=== PATIENT | female | born 1955 | race Caucasian/White ===

== ENCOUNTER 2021-10-27 09:19 | Outpatient (CLI) | payer OTHER, SELFPAY ==
[2021-10-27 09:46] LABS: Absolute Lymphocyte Count 1.75 X10^3/uL (0.83-4.51); Absolute Neutrophil Count 3.2 X10^3/uL (2.0-7.7); Basophil# 0.04 X10^3/uL; Basophil% 0.7 % (0-1); Eosinophil# 0.29 X10^3/uL; Eosinophils% 5.1 % (0-5); Hematocrit 43.5 % (37-47); Hemoglobin 14.4 g/dL (12.0-15.0); Lymphocyte # 1.75 X10^3/ul (0.83-4.51); Lymphocyte % 30.6 % (19-41); Mean Corp Hgb Conc 33.1 g/dL (32-36); Mean Corpuscular Hgb 29.7 pg (27.0-32.0); Mean Corpuscular Volume 89.7 fL (81-99); Monocyte# 0.48 X10^3/uL; Monocyte% 8.4 % (0-10); NRBC Flagged by Analyzer 0 % (0-5); Neutrophil # 3.15 X10^3/uL (2.7-7.7); Platelet Count 268 K/mm3 (150-450); RBC Distribution Width CV 12.6 % (11.6-14.6); RBC Distribution Width SD 41.8 fl (35.1-43.9); Red Blood Count 4.85 M/mm3 (4.2-5.4); White Blood Count 5.7 K/mm3 (4.4-11.0)
[2021-10-27 09:53] LABS: Prothrombin Time (Protime)PT. 12.3 SECONDS (11.7-14.9)
[2021-10-27 10:06] LABS: Hemoglobin A1c 5.6 % (3.8-5.6)
[2021-10-27 10:31] LABS: ALB/GLOB Ratio 0.9 RATIO (0.9-2.4); AST(SGOT) 93 U/L (15-37); Alanine Aminotransfer ALT/SGPT 389 U/L (13-56); Albumin, Serum 3.5 g/dL (3.2-5.0); Alkaline Phosphatase 119 U/L (45-117); Anion Gap 7 (5-15); BUN 17 mg/dL (7-18); BUN/Creat Ratio 20.5 RATIO (10-20); CRP 7.93 mg/L (0.0-3.0); Chloride 106 mmol/L (98-107); Creatinine, Serum 0.83 mg/dL (0.55-1.02); EST Glomerular Filtration Rate 73 mL/min (>60); Est Glom Filt Rate - Afr Amer 89 mL/min (>60); Glucose 98 mg/dL (74-106); LDH 209 U/L (84-246); Potassium 3.9 mmol/L (3.5-5.1); Protein, Total 7.5 g/dL (6.4-8.2); Sodium Level 139 mmol/L (136-145)
[2021-10-28 09:08] LABS: HEPATITIS B SURFACE AG Negative (Negative); Hepatitis A IgM Antibody Negative (Negative); Hepatitis B Core AB IgM Negative (Negative)
[2021-10-28 14:09] LABS: Anti-Centromere B Ab <0.2 AI (0.0-0.9); Anti-Chromatin <0.2 AI (0.0-0.9); Anti-Jo <0.2 AI (0.0-0.9); Anti-Scleroderma-70 AB <0.2 AI (0.0-0.9); RNP Ab 0.7 AI (0.0-0.9); SJOGREN'S Anti-SS-A test < 0.2 AI (0.0-0.9); SJOGREN'S Anti-SS-B test < 0.2 AI (0.0-0.9); Smith Ab <0.2 AI (0.0-0.9)
[2021-10-28 17:51] LABS: Hep C Antibodies <0.1 s/co ratio (0.0-0.9)
[2021-10-28 19:03] LABS: Anti-Mitochondrial AB <20.0 Units (0.0-20.0)
[2021-10-28 19:04] LABS: Anti-dsDNA Ab <1 IU/mL (0-9)
[2021-11-01 21:07] LABS: Cytoplasmic Ab (C-ANCA) <1:20 titer (Neg:<1:20); Endomysial Antibody IgA Negative (Negative); Immunoglobulin A 248 mg/dL (87-352); Immunoglobulin E 59 IU/mL (6-495); Immunoglobulin G 1044 mg/dL (586-1602)
[2021-11-01 21:24] LABS: Anti-Smooth Muscle ABS 25 Units (0-19); Copper, Serum or Plasma 129 ug/dL (80-158); Immunoglobulin M 179 mg/dL (26-217); Perinuclear Ab (P-ANCA) <1:20 titer (Neg:<1:20); t-Transglutaminase IgA <2 U/mL (0-3)
== END 2021-10-27 23:59 | disposition short-term general hospital (02) ==
PROVIDERS: Nurse Practitioner Adult Health; PCP Family Medicine; Referring Provider Internal Medicine Gastroenterology; Visit Provider Internal Medicine Gastroenterology
DX: K76.0 Fatty (change of) liver, not elsewhere classified (principal); R74.8 Abnormal levels of other serum enzymes
CPT/HCPCS: 36415; 80053; 80074; 82525; 82784; 82785; 83036; 83516; 83615; 85025; 85610; 85730; 86140; 86225; 86235; 86255; 86256

== ENCOUNTER 2021-11-07 06:56 | Outpatient (CLI) | payer SELFPAY, OTHER ==
--- NOTE | 2021-11-07 07:14 | US_ITS ---
STUDY: ABDOMINAL ULTRASOUND - RIGHT UPPER QUADRANT REASON FOR VISIT: Female, 66 years old FATTY LIVER . Patient status post cholecystectomy. TECHNIQUE: Ultrasound evaluation of the right upper quadrant was performed with real-time and static connell-scale imaging. TECHNICAL QUALITY: Adequate. COMPARISON: None. FINDINGS: Liver: The liver measures 14.8 cm. There is increased echogenicity consistent with fatty infiltration. The bile ducts are within normal limits. There is hepatic color flow. The direction of portal flow is hepatopetal. There is no demonstrated mass lesion. Gallbladder: The patient is status post cholecystectomy. Common Bile Duct (C.B.D.): The common bile duct measures 8.9 mm. Pancreas: Normal size of the head, body and tail of the pancreas. There is increased echogenicity of the pancreas. There is no demonstrated pancreatic mass or cyst. Right Kidney: Normal size of the right kidney. The right kidney measures 12.2 cm x 5.1 cm x 3.9 cm. Normal renal cortex. The right cortex measures 1.2 cm. There is a 5.8 cm x 6.1 cm x 5 cm right renal cyst. There is no right hydronephrosis. IMPRESSION: Fatty infiltration of the liver. Right renal cyst. Electronically Signed: William Amaya MD at 8:44 EST , STUDY: ABDOMINAL ULTRASOUND - ELASTOGRAPHY REASON FOR VISIT: Female, 66 years old. Fatty infiltration of the liver. TECHNIQUE: Liver stiffness measurements were obtained on a Ebyline 85 ultrasound machine using a CA 1-7 probe following the SRU guidelines. 3 measurements were obtained using a 2-D-SWE method. The IQR/M was 20% suggesting a quality data set. TECHNICAL QUALITY: Adequate. COMPARISON: Comparison is made with prior ultrasound of the right upper quadrant done earlier. FINDINGS: Liver: There is evidence of fatty infiltration of the liver. Median liver stiffness measured 6.3 kPa. US/Abdomen Limited IMPRESSION: Liver stiffness measures 6.3 kPa compatible with F2 Metavir score. Electronically Signed: William Amaya MD at 8:45 EST ,
== END 2021-11-07 23:59 | disposition home or self-care (01) ==
PROVIDERS: PCP Family Medicine; Referring Provider Nurse Practitioner Adult Health; Visit Provider Nurse Practitioner Adult Health
DX: K76.0 Fatty (change of) liver, not elsewhere classified (principal); N28.1 Cyst of kidney, acquired
CPT/HCPCS: 76705; 76981

== ENCOUNTER 2021-11-19 00:50 | Emergency (ER) | payer OTHER, SELFPAY ==
[2021-11-19 00:51] VITALS: BP 167/125; BP 167/84; PULSE 70; PULSE 72; RESP 13; RESP 18; TEMP 36.6; O2SAT 98; O2SAT 99; BMI 32.6
[2021-11-19 01:11] VITALS: BP 156/101; PULSE 69; RESP 15; O2SAT 99
[2021-11-19] MEDS: Ondansetron 4 MG/2 ML Vial IV (01:24)
[2021-11-19] MEDS: Mag Hydrox/Al Hydrox/Simeth 30 ML UDC PO (01:24)
--- NOTE | 2021-11-19 01:25 | ED.VIS.GI ---
HPI HPI - GI History of Present Illness Chief Complaint: Abd Pain Narrative Narrative: Patient presents with her because of epigastric pain that she has had since 6 PM. She is nauseated. She has been seen at other ERs and told that she had gastritis. She takes a proton pump inhibitor. She states that she also sees gastroenterology, Dr. Monroe. She had a biopsy performed and had an allergy to her tape. She started prednisone. She denies any exacerbating or alleviating factors. Past surgical history does include cholecystectomy and hysterectomy. She has not vomited. PFSH PFS Medical History Abdominal pain Breast cyst Home Medications Aim barley life extra PO 10/27/21 [History Last Taken Unknown] Aim herbal fiberblend PO 10/27/21 [History Last Taken Unknown] Charcoal PO 10/27/21 [History Last Taken Unknown] Hep-3 liver purifier PO 10/27/21 [History Last Taken Unknown] Super papaya enzyme plus PO 10/27/21 [History Last Taken Unknown] esomeprazole magnesium 40 mg capsule,delayed release 40 mg PO DAILY 10/27/21 [History Last Taken Unknown] prednisone 11/19/21 [History Last Taken Unknown] Allergy/AdvReac Type Severity Reaction Status Date / Time acetaminophen [From Vicodin] AdvReac skip heart Verified 11/19/21 01:02 beats hydrocodone [From Vicodin] AdvReac skip heart Verified 11/19/21 01:02 beats Family History Father Cancer Brother Heart disease Surgical History H/O bladder repair surgery H/O: hysterectomy Hx of cholecystectomy Knee joint replacement status Social History Smoking Status: Never smoker alcohol intake: never substance use type: does not use what type of physical activity do you participate in: none ROS ROS ED ROS Narrative Constitutional: No fever, no chills. HEENT: No sore throat. No neck pain. No loss of vision. No rhinorrhea. Cardiovascular: No chest pain. No palpitations. No pedal edema. Respiratory: No cough, no shortness of breath. Abdominal: Epigastric abdominal pain. Positive nausea. No vomiting. Genitourinary: No dysuria. No hematuria. Musculoskeletal: No myalgias. No arthralgias. Neurologic: No headaches. No dizziness. No lightheadedness. Skin: No rash. No change in color. Psychiatric: No depression. No anxiety. EXAM Physical Exam Narrative Exam Narrative: Afebrile. Vital signs noted. HEENT: Normocephalic. Atraumatic. PERRL, EOMI. Neck soft and supple. No point tenderness or step off. Cardiovascular: Regular rate and rhythm. No murmurs, rubs, or gallops appreciated. Respiratory: No tachypnea. Lungs clear to auscultation bilaterally. Gastrointestinal: Abdomen soft, mild tenderness in epigastrium, with normoactive bowel sounds. No rebound or guarding. Neurological: Awake. Alert. Nonfocal, nonlateralizing. Skin: No rash. Normal color. No pallor. Musculoskeletal: No pedal edema. Full range of motion extremities. Const Vital Signs: 11/19/21 00:51 11/19/21 01:11 11/19/21 03:14 Temperature 98 F Temperature Source Oral Pulse Rate 72 69 72 Respiratory Rate 13 15 19 H Blood Pressure 167/84 H 156/101 H 181/115 H Blood Pressure Mean 111 119 137 Pulse Ox 99 99 99 Oxygen Delivery Method Room Air Room Air Room Air 11/19/21 04:22 Temperature Temperature Source Pulse Rate 61 Respiratory Rate 16 Blood Pressure 171/87 H Blood Pressure Mean 115 Pulse Ox 96 Oxygen Delivery Method Room Air MDM MDM MDM Narrative Medical decision making narrative: Her did show me the medication that she is taking for her allergic reaction to the adhesive, which is prednisone. I do think that this may be causing her gastritis again. She is afebrile here. I will obtain laboratory work and check her pancreatic enzymes also. She was given Zofran along with a GI cocktail. CBC shows normal white count at 10.5, hemoglobin 15.1. Normal platelet count of 318. Sodium normal at 141, mild hypokalemia at 3.3. She has normal creatinine. She has elevated AST at 503 and ALT at 453 with an alk phos of 137. She does have chronic elevation and is seeing Dr. Friend for this, her last visit on 10/27/2021, few weeks ago still showed elevated liver enzymes. Upon repeat examination, she states that she has gas pain. She states the first time that she went to an outside facility they gave her something through my IV that helped. Additionally when she was the second time, her states that the pain suddenly vanished. If she is describing gas pain, I will treat her with Bentyl 20 mg intramuscularly. Her EKG demonstrates normal sinus rhythm at 61 bpm without ectopy or acute ST changes. High-sensitivity troponin is negative. This is a 6-hour troponin. CT of the abdomen and pelvis shows dilated common bile duct most likely from previous cholecystectomy. There is diverticulosis but no diverticulitis. No evidence of pancreatitis. Patient states that nothing has helped. She still describes it as gas pain. She has an allergy to hydrocodone with skipped heartbeats. I will try Reglan first to help with any gastric emptying problems that she may be experiencing. Repeat evaluation after Reglan showed no improvement. I had a lengthy discussion with the patient and her . She will stop taking the prednisone. She will be given 1 dose of morphine which she has previously tolerated. She does have an elevated blood pressure reading. She will have this addressed by her primary care physician. I did order hydralazine, but after morphine, it seems to be lowering on its own. At this point in time, I am unsure as to the cause of her epigastric pain. She may have a gastritis versus peptic ulcer disease. She will follow up with Dr. Monroe with gastroenterology. I do not feel that she meets any admission criteria. Her comprehensive work-up has yielded negative results except for her known elevated liver enzymes for which she is following up. I feel she can be discharged safely home. Return instructions to the emergency department were reviewed. Disposition is discharged home in stable condition. Lab Data Labs: Laboratory Results - last 24 hr 11/19/21 11/19/21 11/19/21 01:00 01:00 01:00 WBC 10.5 RBC 5.00 Hgb 15.1 H Hct 45.2 MCV 90.4 MCH 30.2 MCHC 33.4 RDW Std Deviation 42.1 RDW Coeff of Reagan 12.7 Plt Count 318 MPV 9.3 Immature Gran % (Auto) 0.500 Neut % (Auto) 58.8 Lymph % (Auto) 30.4 [place] % (Auto) 9.0 Eos % (Auto) 0.9 Baso % (Auto) 0.4 Absolute Neuts (auto) 6.2 Absolute Lymphs (auto) 3.19 Nucleated RBC % 0 Sodium 141 Potassium 3.3 L Chloride 105 Carbon Dioxide 29.0 Anion Gap 7 BUN 22 H Creatinine 0.97 Estim Creat Clear Calc 53.41 Est GFR (MDRD) Af Amer 74 Est GFR (MDRD) Non-Af 61 BUN/Creatinine Ratio 22.7 H Glucose 132 H Calcium 9.1 Total Bilirubin 0.90 AST 503 H ALT 453 H Alkaline Phosphatase 137 H Troponin I High Sens 5 Total Protein 7.6 Albumin 3.6 Globulin 4.0 Albumin/Globulin Ratio 0.9 Lipase 79 Radiography Diagnostic Testing: Clinical Impression(s) from Imaging Studies Abdomen/Pelvis CT 11/19/21 01:52 IMPRESSION: There is dilation of the common bile duct and intrahepatic biliary ducts most likely to to prior cholecystectomy. Right renal cyst measures 6 cm. Normal left kidney. There are multiple colonic diverticula consistent with diverticulosis. Electronically Signed: Homer Zaidi MD at 2:59 EST Reading Location ID and State: [facility] / [place] Tel , Service support , Discharge Plan Triage Chief Complaint: Abd Pain ED Provider: Eric Dias Dx/Rx/DC Orders Clinical Impression: Abdominal pain, epigastric, Liver enzyme elevation, Blood pressure elevated without history of HTN Instructions: ED Hypertension, To Be Confirmed, ED PEPTIC ULCER vs GASTRITIS, ED Epigastric Pain Uncertain Cause Prescriptions: No Action esomeprazole magnesium 40 mg capsule,delayed release(DR/EC) 40 mg PO DAILY RF: 0 Aim barley life extra PO RF: 0 Aim herbal fiberblend PO RF: 0 Super papaya enzyme plus PO RF: 0 Hep-3 liver purifier PO RF: 0 Charcoal PO RF: 0 prednisone 20 mg tablet RF: 0 Primary Care Provider: Court Billingsley Referrals: Court Billingsley MD [Primary Care Provider] - Boom Monroe DO [STAFF PHYSICIAN] - 3-5 Days Disposition Disposition: Home, Self Care
[2021-11-19 01:26] LABS: Absolute Lymphocyte Count 3.19 X10^3/uL (0.83-4.51); Absolute Neutrophil Count 6.2 X10^3/uL (2.0-7.7); Basophil# 0.04 X10^3/uL; Basophil% 0.4 % (0-1); Eosinophil# 0.09 X10^3/uL; Eosinophils% 0.9 % (0-5); Hematocrit 45.2 % (37-47); Hemoglobin 15.1 g/dL (12.0-15.0); Lymphocyte # 3.19 X10^3/ul (0.83-4.51); Lymphocyte % 30.4 % (19-41); Mean Corp Hgb Conc 33.4 g/dL (32-36); Mean Corpuscular Hgb 30.2 pg (27.0-32.0); Mean Corpuscular Volume 90.4 fL (81-99); Mean Platelet Vol. 9.3 fl (6.2-12.0); Monocyte# 0.95 X10^3/uL; NRBC Flagged by Analyzer 0 % (0-5); Neutrophil # 6.18 X10^3/uL (2.7-7.7); Neutrophil % 58.8 % (47-70); Platelet Count 318 K/mm3 (150-450); RBC Distribution Width CV 12.7 % (11.6-14.6); RBC Distribution Width SD 42.1 fl (35.1-43.9); White Blood Count 10.5 K/mm3 (4.4-11.0)
[2021-11-19 01:39] LABS: ALB/GLOB Ratio 0.9 RATIO (0.9-2.4); AST(SGOT) 503 U/L (15-37); Alanine Aminotransfer ALT/SGPT 453 U/L (13-56); Albumin, Serum 3.6 g/dL (3.2-5.0); Alkaline Phosphatase 137 U/L (45-117); Anion Gap 7 (5-15); BUN 22 mg/dL (7-18); BUN/Creat Ratio 22.7 RATIO (10-20); Calcium,Total 9.1 mg/dL (8.5-10.1); Chloride 105 mmol/L (98-107); Creatinine, Serum 0.97 mg/dL (0.55-1.02); EST Glomerular Filtration Rate 61 mL/min (>60); Est Glom Filt Rate - Afr Amer 74 mL/min (>60); Estimated Creatinine Clearance 53.41 ml/min; Glucose 132 mg/dL (74-106); Lipase 79 U/L (73-393); Potassium 3.3 mmol/L (3.5-5.1); Protein, Total 7.6 g/dL (6.4-8.2); Sodium Level 141 mmol/L (136-145)
--- NOTE | 2021-11-19 01:52 | CT_ITS ---
STUDY: CT ABDOMEN AND PELVIS WITH CONTRAST REASON FOR EXAM: Female, 66 years old. Pain RADIATION DOSAGE (If Supplied By Facility): CTDIvol = ( 15.52 ) mGy, DLP = ( 819.00 ) mGycm TECHNIQUE: Transaxial images were obtained from the dome of the diaphragm to the symphysis pubis without oral contrast. IV 100mL Isovue-370 was administered. Sagittal and coronal images were reconstructed. Individualized dose optimization techniques were used for this CT. COMPARISON: None. FINDINGS: The visualized lung bases are unremarkable. The visualized portions of the heart are within normal limits. Normal liver. There are surgical clips in the gallbladder fossa consistent with a prior cholecystectomy. There is dilation of the common bile duct and intrahepatic biliary ducts most likely to to prior cholecystectomy. Normal spleen. Normal pancreas. Normal bilateral adrenal glands. Right renal cyst measures 6 cm. Normal left kidney. Normal visualized stomach. Normal small intestine. There are multiple colonic diverticula consistent with diverticulosis. The appendix is visualized and appears normal. Normal abdominal aorta. Normal inferior vena cava. Normal retroperitoneum. Normal urinary bladder. Normal abdominal wall. Normal osseous structures. CT/Abdomen/Pelvis W IV Cont ONLY IMPRESSION: There is dilation of the common bile duct and intrahepatic biliary ducts most likely to to prior cholecystectomy. Right renal cyst measures 6 cm. Normal left kidney. There are multiple colonic diverticula consistent with diverticulosis. Electronically Signed: Homer Zaidi MD at 2:59 EST ,
--- NOTE | 2021-11-19 01:55 | EKG12_ITS ---
Test Reason : DYSRHYTHMIA Blood Pressure : / mmHG Vent. Rate : 061 BPM Atrial Rate : 061 BPM P-R Int : 162 ms QRS Dur : 072 ms QT Int : 432 ms P-R-T Axes : 056 019 024 degrees QTc Int : 434 ms Normal sinus rhythm Normal ECG Confirmed by MARCO MACDONALD, BELEN ([id number]), editor managing newspaper YISSEL LO ([id number]) on 11/23/2021 11:48:33 A M Referred By: GENE Confirmed By:NUSRAT LARA MD
[2021-11-19] MEDS: Dicyclomine 20 MG/2 ML Vial IM (01:56)
[2021-11-19 02:22] LABS: Troponin-I HS 5 pg/mL (3.0-54.0)
[2021-11-19] MEDS: Metoclopramide 10 MG/2 ML Vial 5 MG IV (03:13)
[2021-11-19 03:14] VITALS: BP 181/115; PULSE 72; RESP 19; O2SAT 99
[2021-11-19] MEDS: Morphine 4 MG/ML Syringe IV (04:10)
[2021-11-19 04:22] VITALS: BP 171/87; PULSE 61; RESP 16; O2SAT 96
[2021-11-19 04:56] VITALS: BP 171/83; PULSE 67; RESP 16; O2SAT 96
== END 2021-11-19 05:04 | disposition home or self-care (01) ==
PROVIDERS: Emergency Provider Emergency Medicine; PCP Family Medicine; Visit Provider Emergency Medicine
DX: R10.13 Epigastric pain (principal); R94.5 Abnormal results of liver function studies; R03.0 Elevated blood-pressure reading, without diagnosis of hypertension; Z90.49 Acquired absence of other specified parts of digestive tract; Z90.710 Acquired absence of both cervix and uterus
CPT/HCPCS: 74177; 80053; 83690; 84484; 85025; 93005; 96372; 96374; 96375; 99282; Q9967; A4216; J2405

== ENCOUNTER 2021-12-16 10:11 | Outpatient (CLI) | payer OTHER, SELFPAY ==
[2021-12-16 10:27] LABS: Erythrocyte Sedimentation Rate 29 mm/hr (0-30)
[2021-12-16 10:32] LABS: Prothrombin Time (Protime)PT. 12.8 SECONDS (11.7-14.9)
[2021-12-16 11:00] LABS: ALB/GLOB Ratio 0.9 RATIO (0.9-2.4); AST(SGOT) 17 U/L (15-37); Alanine Aminotransfer ALT/SGPT 29 U/L (13-56); Albumin, Serum 3.6 g/dL (3.2-5.0); Alkaline Phosphatase 85 U/L (45-117); Anion Gap 2 (5-15); BUN 15 mg/dL (7-18); BUN/Creat Ratio 18.3 RATIO (10-20); CRP 7.32 mg/L (0.0-3.0); Calcium,Total 9.5 mg/dL (8.5-10.1); Chloride 107 mmol/L (98-107); Creatinine, Serum 0.82 mg/dL (0.55-1.02); EST Glomerular Filtration Rate 74 mL/min (>60); Est Glom Filt Rate - Afr Amer 90 mL/min (>60); Globulin 3.8 g/dL (2.2-4.2); Glucose 97 mg/dL (74-106); LDH 214 U/L (84-246); Potassium 4.3 mmol/L (3.5-5.1); Protein, Total 7.4 g/dL (6.4-8.2); Sodium Level 138 mmol/L (136-145)
== END 2021-12-16 23:59 | disposition home or self-care (01) ==
LOC: LAB 10:12
PROVIDERS: PCP Family Medicine; Visit Provider Internal Medicine Gastroenterology
DX: K76.0 Fatty (change of) liver, not elsewhere classified (principal); R74.8 Abnormal levels of other serum enzymes; R10.9 Unspecified abdominal pain
CPT/HCPCS: 36415; 80053; 83615; 85610; 85652; 86140

== ENCOUNTER → 2022-10-06 | Outpatient (CLI) | payer SELFPAY, OTHER ==
--- NOTE | 2022-10-06 09:26 | US_ITS ---
STUDY: ABDOMINAL ULTRASOUND - ELASTOGRAPHY REASON FOR VISIT: Female, 66 years old. NAFLD TECHNIQUE: Liver stiffness measurements were obtained on a Firmafon RS 85 ultrasound machine using a CA 1-7 probe following the SRU guidelines. 3 measurements were obtained using a 2-D-SWE method. The IQR/M was 19% suggesting a quality data set. TECHNICAL QUALITY: Adequate. COMPARISON: Comparison is made with prior study done earlier today and 11/07/2021. FINDINGS: Liver: Fatty infiltration of the liver. Median liver stiffness measured 9 kPa. US/Elastography Parenchyma/Organ IMPRESSION: Liver stiffness measures 9 kPa compatible with F2-F3 (Mild to moderate liver fibrosis) Metavir score. Electronically Signed: William Amaya MD at 12:54 EST ,
--- NOTE | 2022-10-06 09:26 | US_ITS ---
STUDY: ABDOMINAL ULTRASOUND - RIGHT UPPER QUADRANT REASON FOR VISIT: Female, 66 years old NAFLD TECHNIQUE: Ultrasound evaluation of the right upper quadrant was performed with real-time and static connell-scale imaging. TECHNICAL QUALITY: Adequate. COMPARISON: Comparison is made with prior study dated 11/07/2021. FINDINGS: Liver: The liver measures 13.4 cm. There is increased echogenicity consistent with fatty infiltration. The bile ducts are within normal limits. There is hepatic color flow. The direction of portal flow is hepatopetal. There is no demonstrated mass lesion. Gallbladder: The patient is status post cholecystectomy. Common Bile Duct (C.B.D.): The common bile duct measures 5 mm. Pancreas: Normal size of the head, body and tail of the pancreas. There is normal echogenicity of the pancreas. There is no demonstrated pancreatic mass or cyst. Right Kidney: Normal size of the right kidney. The right kidney measures 11.6 cm x 5.9 cm x 4.6 cm. Normal renal cortex. The right cortex measures 1.5 cm. There is a 5.7 cm x 5.7 cm x 5.1 cm right renal cyst. There is no right hydronephrosis. US/Abdomen Limited IMPRESSION: Status post cholecystectomy. Stable right renal cyst. Fatty infiltration of the liver. Electronically Signed: William Amaya MD at 12:52 EST ,
== END | disposition home or self-care (01) ==
PROVIDERS: PCP Family Medicine; Visit Provider Nurse Practitioner Adult Health
DX: K76.0 Fatty (change of) liver, not elsewhere classified (principal)
CPT/HCPCS: 76705; 76981

== ENCOUNTER → 2022-12-11 | Outpatient (CLI) | payer OTHER, SELFPAY ==
[2022-12-11 11:07] LABS: Ammonia < 10.0 umol/L (11-32)
[2022-12-11 11:41] LABS: Erythrocyte Sedimentation Rate 31 mm/hr (0-30); Prothrombin Time (Protime)PT. 12.7 SECONDS (11.7-14.9)
[2022-12-11 12:03] LABS: ALB/GLOB Ratio 0.9 RATIO (0.9-2.4); AST(SGOT) 14 U/L (15-37); Alanine Aminotransfer ALT/SGPT 26 U/L (13-56); Albumin, Serum 3.6 g/dL (3.2-5.0); Alkaline Phosphatase 66 U/L (45-117); Anion Gap 6 (5-15); BUN 17 mg/dL (7-18); BUN/Creat Ratio 22.5 RATIO (10-20); Chloride 105 mmol/L (98-107); Creatinine, Serum 0.76 mg/dL (0.55-1.02); EST Glomerular Filtration Rate 81 mL/min (>60); Est Glom Filt Rate - Afr Amer 98 mL/min (>60); Globulin 3.9 g/dL (2.2-4.2); Glucose 81 mg/dL (74-106); LDH 173 U/L (84-246); Protein, Total 7.5 g/dL (6.4-8.2); Sodium Level 139 mmol/L (136-145)
[2022-12-11 12:43] LABS: Absolute Lymphocyte Count 1.71 X10^3/uL (0.83-4.51); Absolute Neutrophil Count 2.9 X10^3/uL (2.0-7.7); Basophil# 0.03 X10^3/uL; Basophil% 0.6 % (0-1); Eosinophil# 0.25 X10^3/uL; Eosinophils% 4.6 % (0-5); Hematocrit 44.5 % (37-47); Hemoglobin 14.3 g/dL (12.0-15.0); Lymphocyte # 1.71 X10^3/ul (0.83-4.51); Lymphocyte % 31.4 % (19-41); Mean Corp Hgb Conc 32.1 g/dL (32-36); Mean Corpuscular Hgb 29.4 pg (27.0-32.0); Mean Corpuscular Volume 91.6 fL (81-99); Mean Platelet Vol. 9.4 fl (6.2-12.0); Monocyte# 0.54 X10^3/uL; Monocyte% 9.9 % (0-10); NRBC Flagged by Analyzer 0 % (0-5); Neutrophil # 2.91 X10^3/uL (2.7-7.7); Neutrophil % 53.3 % (47-70); Platelet Count 275 K/mm3 (150-450); RBC Distribution Width CV 12.9 % (11.6-14.6); RBC Distribution Width SD 43.3 fl (35.1-43.9); Red Blood Count 4.86 M/mm3 (4.2-5.4); White Blood Count 5.5 K/mm3 (4.4-11.0)
[2022-12-13 08:14] LABS: Anti-Mitochondrial AB <20.0 Units (0.0-20.0); Anti-Smooth Muscle ABS 12 Units (0-19)
== END | disposition home or self-care (01) ==
PROVIDERS: PCP Family Medicine; Referring Provider Nurse Practitioner Adult Health; Visit Provider Nurse Practitioner Adult Health
DX: K76.0 Fatty (change of) liver, not elsewhere classified (principal)
CPT/HCPCS: 36415; 80053; 82140; 83516; 83615; 85025; 85610; 85652; 86140

== ENCOUNTER 2024-01-08 11:47 | Observation (INO) | payer OTHER, SELFPAY ==
[2024-01-08] VITALS (13 sets, daily range): BP systolic 96–141; BP diastolic 57–86; PULSE 66–86; RESP 16–19; TEMP 36.4–37.1; O2SAT 93–98; BMI 32.0
--- NOTE | 2024-01-08 11:51 | HP.PCM.HOS_ITS ---
HPI - General General Date of Admission: 01/08/24 Date of Service: 01/08/24 Chief Complaint: Abdominal pain/nausea/vomiting HPI Narrative BRENDON ROCHE, is a 68 F who presented to outside hospital emergency department on 01/08/2024 early in the morning due to abdominal pain, nausea, and vomiting. She states her symptoms started the evening prior to presentation at about 7:30 PM at which time she started having epigastric and right upper quadrant abdominal pain that radiated into her back. It worsened as the evening went on and about 3 3:30 in the morning she asked her to take her emergency department because it was so bad. She had associated nausea and vomiting. She does not have a gallbladder and has not had anything like this previously. She had 1 episode similar to this back in 2021 and followed up with gastroenterology and was found to have fatty liver at that time. Her transaminases resolved and she has not seen Dr. Monroe in about a year. She was diagnosed with nonalcoholic fatty liver disease at that time. She states other than her abdominal symptoms she has been feeling well and been having normal bowel movements. Vital signs here at the time of arrival are overall unremarkable other than some mildly elevated blood pressure. Her CBC was unremarkable other than she had a left shift with an 81% neutrophilia. Her lipase is normal at 22. Her chemistry panel showed mild hyponatremia with a sodium of 134 but otherwise was unremarkable. Liver functions were abnormal with an AST of 538, ALT T of 543, alk phos of 144 and bilirubin of 1.8. Direct bili was found to be 1.3. Lactate was obtained and found to be 1.6. Given her abnormal liver function a CT of the abdomen pelvis with IV contrast was performed and showed a dilated common bile duct with heterogeneous area noted distally to the duct and stones could not be excluded. Troponin was normal. EKG was unremarkable. Given the fact she follows with Dr. Monroe previously she was transferred here for ERCP. [facility] Medical History (Updated 01/08/24 @ 15:[address] Yuliya Fermin DO) Anxiety Breast cancer Breast cyst Hiatal hernia NAFLD (nonalcoholic fatty liver disease) Home Medications Aim barley life extra PO 10/27/21 [History Last Taken Unknown] Aim herbal fiberblend PO 10/27/21 [History Last Taken Unknown] Charcoal PO 10/27/21 [History Last Taken Unknown] Hep-3 liver purifier PO 10/27/21 [History Last Taken Unknown] Super papaya enzyme plus PO 10/27/21 [History Last Taken Unknown] ergocalciferol (vitamin D2) 1,250 mcg (50,000 unit) capsule 1,250 mcg PO QWEEK supplement 01/08/24 [History Last Taken Unknown] exemestane 25 mg tablet 25 mg PO DAILY breast cancer 01/08/24 [History Last Taken Unknown] lorazepam 0.5 mg tablet 0.5 - 1 mg PO TID PRN PRN agitation 01/08/24 [History Last Taken Unknown] Allergy/AdvReac Type Severity Reaction Status Date / Time acetaminophen [From Vicodin] AdvReac skip heart Verified 12/11/22 09:49 beats hydrocodone [From Vicodin] AdvReac skip heart Verified 12/11/22 09:49 beats Family History Father Cancer Brother Heart disease Surgical History H/O bladder repair surgery H/O: hysterectomy Hx of cholecystectomy Knee joint replacement status S/P hysterectomy S/P tubal ligation Social History adopted: No household members: spouse housing: house number of children: 4 (5 step childern) history of recent travel: No current gender identity: female Smoking Status: Never smoker alcohol intake: never substance use type: does not use what type of physical activity do you participate in: none ROS Constitutional Constitutional: Denies anorexia, change in weight, chills, fatigue, fever(s), malaise, night sweats, weakness or other Eyes Eyes: Denies blurry vision, change in eye color, change in vision, discharge from eye(s), double vision, erythema, eye pain, loss of vision or other ENT HEENT: Denies abnormal hearing, dysphagia, ear pain, epistaxis, headache(s), hearing loss, nasal congestion, nasal discharge, post nasal drip, sinus pressure, sore throat or other Cardiovascular Cardiovascular: Denies chest pain, claudication, dyspnea on exertion, edema, lightheadedness, orthopnea, palpitations, paroxysmal nocturnal dyspnea, rapid heart rate, syncope or other Respiratory/Chest Respiratory/Chest: Denies cough, dyspnea, excessive phlegm production, hemoptysis, productive cough, shortness of breath at rest, shortness of breath with exertion, wheezing or other Gastrointestinal Gastrointestinal: Reports abdominal pain, nausea and vomiting; Denies coffee ground emesis, constipation, diarrhea, dyspepsia, hematemesis, hematochezia, loose stools, melena or other Genitourinary Genitourinary: Denies burning urination, difficulty urinating, dysuria, hematuria, nocturia, urinary frequency, urinary hesitancy, urinary incontinence, urinary urgency or other Musculoskeletal Musculoskeletal: Reports joint pain and joint stiffness; Denies arthralgias, back pain, joint swelling, myalgias, neck pain or other Neurologic Neurologic: Denies abnormal gait, abnormal speech, confusion, disequilibrium, dizziness, focal weakness, headache(s), numbness, paresthesias, seizure-like activity, seizures, syncope, tingling, tremor(s) or other Psychiatric Psychiatric: Reports anxiety; Denies depression, homicidal ideation, suicidal ideation or other Endocrine Endocrinology: Denies change in body appearance, cold intolerance, excessive sweating, heat intolerance, polydipsia, polyuria or other Hematologic/Lymphatic Hematologic/Lymphatic: Denies anemia, easy bleeding, easy bruising, lymphadenopathy or other Allergic/Immunologic Allergic/Immunologic: Denies rhinitis, hives, eczemia, asthma or other Vital Signs Vital Signs Vital Signs: 01/08/24 11:11 01/08/24 11:15 01/08/24 11:23 Temperature 98.0 F 98 F Temperature Source Temporal Oral Pulse Rate 68 67 Respiratory Rate 16 19 H Respiratory Effort Normal Non-Labored Respiratory Depth Normal Respiratory Pattern Normal Blood Pressure 122/65 H 122/65 H Blood Pressure Mean 84 84 Blood Pressure Source Monitor Monitor Blood Pressure Position Semi-Fowlers Semi-Fowlers Blood Pressure Location Right Arm Left Arm Pulse Ox 95 97 Oxygen Delivery Method Room Air Room Air Room Air Weight Weight: 89.902 kg Body Mass Index (BMI) 32.0 Physical Exam Const alert, oriented x3, no apparent distress, healthy appearing and well nourished Constitutional Narrative: Obese, upper middle-aged, white female, sitting up in bed, nursing at bedside, at bedside, currently appears comfortable, nontoxic General Appearance: cooperative HEENT normocephalic, head/scalp atraumatic, hearing grossly normal bilaterally and moist oral mucous membranes HEENT Narrative: Mallampati 3, no thrush Eyes PERRL, EOMs intact bilaterally and conjunctivae normal Eyes Narrative: No scleral icterus Neck no lymphadenopathy and supple Neck Narrative: Trachea midline, no thyroid enlargement Resp normal respiratory effort, no retractions, no use of accessory muscles and clear to auscultation bilaterally Auscultation: Negative for rales, rhonchi or wheezes Cardio regular rate, regular rhythm, S1 normal heart sound, S2 normal heart sound, no murmurs, no rub, no gallops and no clicks GI normal to inspection, nondistended, normoactive bowel sounds and soft to palpation GI Narrative: Tenderness in the right upper quadrant close to midline and epigastrium Extremity no clubbing, cyanosis or edema Extremity Narrative: Pedal pulses are 2+ Skin no rashes or lesions noted, no wounds, skin turgor normal, no jaundice, no petechiae and no mottling Neuro oriented x3, moves all extremities and no focal motor deficits Speech: speech normal Psych affect normal Psych Narrative: Eye contact is good, patient interacts appropriately, very pleasant Assessment & Plan Assessment/Plan (1) Liver enzyme elevation: (2) Choledocholithiasis: (3) Nausea and vomiting: (4) Abdominal pain: (5) Hyperbilirubinemia: PLAN: Plan Abdominal pain/nausea and vomiting secondary to choledocholithiasis -CT of the abdomen pelvis shows dilated bile duct -History of cholecystectomy -IV fluids with LR at 75 cc/h -As needed antiemetics -PRN pain medication -N.p.o. -GI is consulted and plans for ERCP later today Transaminitis/hyperbilirubinemia -Secondary to the above -Repeat in a.m. after ERCP is performed -Should anticipate that this should trend down status post ERCP and obstruction is removed History of nonalcoholic fatty liver disease -Continue ongoing outpatient follow-up as needed Vitamin D deficiency -Restart ergocalciferol at discharge History of breast cancer -Status postlumpectomy -Continue home exemestane Anxiety -Continue home lorazepam DVT prophylaxis -Subcu Lovenox 40 daily CODE STATUS -Full code as verified at the time of admission Charges/Coding Visit Charges Inpatient E&M: 67107 Init Hosp L2
--- NOTE | 2024-01-08 12:03 | EX.PCM.CON.G ---
HPI Consult Data Date of Consult: 01/08/24 HPI Narrative Reason for Consultation: Choledocholithiasis HPI Narrative: BRENDON ROCHE, is a 68 F who presents with abdominal pain from outside hospital. Brendon established with the GI clinic 10.27.21 with referral from her PCP for diagnoses hepatitis with elevated alk phos, AST and ALT. Symptoms at time of establishment included epigastric pain radiating into her back, causing ED presentation on two occasions. PCP noted that constipation has been a longstanding issue with her. 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 US RUQ 12..20 with [facility] found fatty liver infiltration, right renal cyst and right renal disease. CT abd/pel 09.08.21 with [facility] found fatty liver infiltration, right renal cyst, small hiatal hernia, moderate stool retention, small umbilical hernia with fat. US RUQ and elastography 11.07.21 found liver measurement 14.8cm with fatty infiltration. Increased echogenicity of the pancreas. Liver stiffness measure 6.3kPa compatible with F2 Metavir. CT abd/pel 11.19.21 found dilation of common bile duct and intrahepatic biliary ducts likely r/t prior cholecystectomy. Multiple colonic diverticula consistent with diverticulosis. Remaining exam without abnormality. Plan from last visit 10.27.21: Fatty liver ? recommend biochemical workup, ultrasound and elastography. Liver enzyme elevation ?thought to be secondary to AGUILERA or elevated A1c. Early this morning she developed abdominal pain, nausea, and vomiting. She states her symptoms started the evening prior to presentation at about 7:30 PM at which time she started having epigastric and right upper quadrant abdominal pain that radiated into her back. It worsened as the evening went on and about 3 3:30 in the morning she asked her to take her emergency department because it was so bad. She had associated nausea and vomiting. She does not have a gallbladder and has not had anything like this previously. Vital signs here at the time of arrival are overall unremarkable other than some mildly elevated blood pressure. Her CBC was unremarkable other than she had a left shift with an 81% neutrophilia. Her lipase is normal at 22. Her chemistry panel showed mild hyponatremia with a sodium of 134 but otherwise was unremarkable. Liver functions were abnormal with an AST of 538, ALT T of 543, alk phos of 144 and bilirubin of 1.8. Direct bili was found to be 1.3. Lactate was obtained and found to be 1.6. Given her abnormal liver function a CT of the abdomen pelvis with IV contrast was performed and showed a dilated common bile duct with heterogeneous area noted distally to the duct and stones could not be excluded. Troponin was normal. EKG was unremarkable. She was transferred here for ERCP. [facility] Medical History (Updated 01/08/24 @ 15:[address] Yuliya Fermin DO) Anxiety Breast cancer Breast cyst Hiatal hernia NAFLD (nonalcoholic fatty liver disease) Home Medications Aim barley life extra PO 10/27/21 [History Last Taken Unknown] Aim herbal fiberblend PO 10/27/21 [History Last Taken Unknown] Charcoal PO 10/27/21 [History Last Taken Unknown] Hep-3 liver purifier PO 10/27/21 [History Last Taken Unknown] Super papaya enzyme plus PO 10/27/21 [History Last Taken Unknown] ergocalciferol (vitamin D2) 1,250 mcg (50,000 unit) capsule 1,250 mcg PO QWEEK supplement 01/08/24 [History Last Taken Unknown] exemestane 25 mg tablet 25 mg PO DAILY breast cancer 01/08/24 [History Last Taken Unknown] lorazepam 0.5 mg tablet 0.5 - 1 mg PO TID PRN PRN agitation 01/08/24 [History Last Taken Unknown] Allergy/AdvReac Type Severity Reaction Status Date / Time acetaminophen [From Vicodin] AdvReac skip heart Verified 12/11/22 09:49 beats hydrocodone [From Vicodin] AdvReac skip heart Verified 12/11/22 09:49 beats Family History Father Cancer Brother Heart disease Surgical History H/O bladder repair surgery H/O: hysterectomy Hx of cholecystectomy Knee joint replacement status S/P hysterectomy S/P tubal ligation Social History adopted: No household members: spouse housing: house number of children: 4 (5 step childern) history of recent travel: No current gender identity: female Smoking Status: Never smoker alcohol intake: never substance use type: does not use what type of physical activity do you participate in: none ROS Constitutional Constitutional: Denies anorexia, change in weight, chills, fatigue, fever(s), malaise, night sweats, weakness or other Eyes Eyes: Denies blurry vision, change in eye color, change in vision, discharge from eye(s), double vision, erythema, eye pain, loss of vision or other ENT HEENT: Denies abnormal hearing, dysphagia, ear pain, epistaxis, headache(s), hearing loss, nasal congestion, nasal discharge, post nasal drip, sinus pressure, sore throat or other Cardiovascular Cardiovascular: Denies chest pain, claudication, dyspnea on exertion, edema, lightheadedness, orthopnea, palpitations, paroxysmal nocturnal dyspnea, rapid heart rate, syncope or other Respiratory/Chest Respiratory/Chest: Denies cough, dyspnea, excessive phlegm production, hemoptysis, productive cough, shortness of breath at rest, shortness of breath with exertion, wheezing or other Gastrointestinal Gastrointestinal: Reports abdominal pain, nausea and vomiting; Denies coffee ground emesis, constipation, diarrhea, dyspepsia, hematemesis, hematochezia, loose stools, melena or other Genitourinary Genitourinary: Denies burning urination, difficulty urinating, dysuria, hematuria, nocturia, urinary frequency, urinary hesitancy, urinary incontinence, urinary urgency or other Musculoskeletal Musculoskeletal: Reports joint pain and joint stiffness; Denies arthralgias, back pain, joint swelling, myalgias, neck pain or other Neurologic Neurologic: Denies abnormal gait, abnormal speech, confusion, disequilibrium, dizziness, focal weakness, headache(s), numbness, paresthesias, seizure-like activity, seizures, syncope, tingling, tremor(s) or other Psychiatric Psychiatric: Reports anxiety; Denies depression, homicidal ideation, suicidal ideation or other Endocrine Endocrinology: Denies change in body appearance, cold intolerance, excessive sweating, heat intolerance, polydipsia, polyuria or other Hematologic/Lymphatic Hematologic/Lymphatic: Denies anemia, easy bleeding, easy bruising, lymphadenopathy or other Allergic/Immunologic Allergic/Immunologic: Denies rhinitis, hives, eczemia, asthma or other Physical Exam Const alert, oriented x3, no apparent distress, healthy appearing and well nourished Constitutional Narrative: Obese, upper middle-aged, white female, sitting up in bed, nursing at bedside, at bedside, currently appears comfortable, nontoxic General Appearance: cooperative HEENT normocephalic, head/scalp atraumatic, hearing grossly normal bilaterally and moist oral mucous membranes HEENT Narrative: Mallampati 3, no thrush Eyes PERRL, EOMs intact bilaterally and conjunctivae normal Eyes Narrative: No scleral icterus Neck no lymphadenopathy and supple Neck Narrative: Trachea midline, no thyroid enlargement Resp normal respiratory effort, no retractions, no use of accessory muscles and clear to auscultation bilaterally Auscultation: Negative for rales, rhonchi or wheezes Cardio regular rate, regular rhythm, S1 normal heart sound, S2 normal heart sound, no murmurs, no rub, no gallops and no clicks GI normal to inspection, nondistended, normoactive bowel sounds and soft to palpation GI Narrative: Tenderness in the right upper quadrant close to midline and epigastrium Extremity no clubbing, cyanosis or edema Extremity Narrative: Pedal pulses are 2+ Skin no rashes or lesions noted, no wounds, skin turgor normal, no jaundice, no petechiae and no mottling Neuro oriented x3, moves all extremities and no focal motor deficits Speech: speech normal Psych affect normal Psych Narrative: Eye contact is good, patient interacts appropriately, very pleasant Assessment & Plan Assessment/Plan (1) Nausea and vomiting: (2) Abdominal pain: (3) Hyperbilirubinemia: (4) Choledocholithiasis: PLAN: Plan 68-year-old comes in with abdominal pain, nausea, vomiting and discovered to have cholestatic jaundice and a dilated common bile duct with filling defect in the distal common bile duct. She will need to undergo therapeutic ERCP for removal common bile duct stone. She was explained alternatives, risk, benefits include not withstanding bleeding, infection, sepsis, perforation, need for emergent urgent . She have an ASA of 3.
--- NOTE | 2024-01-08 16:05 | RAD_ITS ---
Fluoroscopic-guided ERCP INDICATION: Abdominal pain TECHNIQUE: Fluoroscopic guided ERCP was done by the referring chief cardiopulmonary technologist in usual fashion utilizing 0.57 minutes of fluoroscopic time. FINDINGS: 11 fluoroscopic guided spot images were obtained of the examination for documentation purposes. For more complete information recommend correlation with gastroenterology notes RAD/ERCP Biliary/Pancreas IMPRESSION: Fluoroscopic-guided ERCP Electronically Signed: Gilbert Martínez MD at 17:34 EDT ,
--- NOTE | 2024-01-08 16:46 | OP.ERCP_ITS ---
Patient Name: Giuliana Mcgill Procedure Date: 01/08/2024 3:43 PM Date of : 1955 Age: 68 Procedure: ERCP Indications: Bile duct stone(s), Jaundice, Elevated liver enzymes Providers: Boom Monroe DO Referring MD: Truman Lucas Medicines: Monitored Anesthesia Care Patient Profile: This is a 68 year old female. Refer to note in patient chart for documentation of history and physical. Patient has symptoms of acute epigastric abdominal pain and acute jaundice. Complications: No immediate complications. Procedure: Pre-Anesthesia Assessment: - Prior to the procedure, a History and Physical was performed, and patient medications and allergies were reviewed. The patient is competent. The risks and benefits of the procedure and the sedation options and risks were discussed with the patient. All questions were answered and informed consent was obtained. Patient identification and proposed procedure were verified by the physician in the pre-procedure area. Mental Status Examination: alert and oriented. Airway Examination: normal oropharyngeal airway and neck mobility. Respiratory Examination: clear to auscultation. CV Examination: normal. Prophylactic Antibiotics: The patient does not require prophylactic antibiotics. Prior Anticoagulants: The patient has taken no anticoagulant or antiplatelet agents. ASA Grade Assessment: III - A patient with severe systemic disease. After reviewing the risks and benefits, the patient was deemed in satisfactory condition to undergo the procedure. The anesthesia plan was to use monitored anesthesia care (MAC). Immediately prior to administration of medications, the patient was re-assessed for adequacy to receive sedatives. The heart rate, respiratory rate, oxygen saturations, blood pressure, adequacy of pulmonary ventilation, and response to care were monitored throughout the procedure. The physical status of the patient was re-assessed after the procedure. After obtaining informed consent, the scope was passed under direct vision. Throughout the procedure, the patient's blood pressure, pulse, and oxygen saturations were monitored continuously. The Duodenoscope was introduced through the mouth, and advanced to the duodenum and used to inject contrast into the bile duct and ventral pancreatic duct. The ERCP was accomplished without difficulty. The patient tolerated the procedure well. Scope In: 4:18:03 PM Scope Out: 4:35:37 PM Total Procedure Duration Time 0 hours 17 minutes 34 seconds Findings: The sales and marketing engineer film was normal. The esophagus was successfully intubated under direct vision. The scope was advanced to a normal major papilla in the descending duodenum without detailed examination of the pharynx, larynx and associated structures, and upper GI tract. The upper GI tract was grossly normal. The bile duct was deeply cannulated with the short-nosed traction sphincterotome. Contrast was injected. I personally interpreted the bile duct and pancreatic duct images. There was brisk flow of contrast through the ducts. Image quality was excellent. Contrast extended to the entire biliary tree. Opacification of the entire biliary tree except for the gallbladder was successful. The maximum diameter of the ducts was 10 mm. The biliary orifice was stenotic. This appeared benign. A straight Roadrunner wire was passed into the biliary tree. A 5 mm biliary sphincterotomy was made with a traction (standard) sphincterotome using ERBE electrocautery. The sphincterotomy oozed blood. The biliary tree was swept with a 12 mm balloon starting at the bifurcation. Pus was swept from the duct. Debris was swept from the duct. All stones were removed. One 10 Fr by 5 cm temporary stent was placed 5 cm into the common bile duct. Bile flowed through the stent. The stent was in good position. A standard esophagogastroduodenoscopy scope was used for the examination of the upper gastrointestinal tract. The scope was passed under direct vision through the upper GI tract. A large amount of food (residue) was found in the gastric body. Impression: - Biliary papillary stenosis, benign. - A large amount of food (residue) in the stomach. - Choledocholithiasis was found. Complete removal was accomplished by biliary sphincterotomy and balloon extraction. - A biliary sphincterotomy was performed. - The biliary tree was swept and pus and debris were found. - One temporary stent was placed into the common bile duct. Recommendation: Gastric emptying study. All medications that increase motility will have to be held for 24 hours prior to doing gastric emptying study. Azithromycin 1 g x 1 and oral Reglan 10 mg IV IV every 6 hours. When she goes home he could be transition to oral. Check hemoglobin A1c. Procedure Code(s): --- Professional --- 61413, Endoscopic retrograde cholangiopancreatography (ERCP); with placement of endoscopic stent into biliary or pancreatic duct, including pre- and post-dilation and guide wire passage, when performed, including sphincterotomy, when performed, each stent 38946, Endoscopic retrograde cholangiopancreatography (ERCP); with removal of calculi/debris from biliary/pancreatic duct(s) 13370, 26, Combined endoscopic catheterization of the biliary and pancreatic ductal systems, radiological supervision and interpretation CPT copyright 2021 [employer]. All rights reserved. The codes documented in this report are preliminary and upon exchange operator review may be revised to meet current compliance requirements. Boom Monroe DO 01/08/2024 4:45:36 PM This report has been signed electronically. Number of Addenda: 0 Note Initiated On: 01/08/2024 3:43 PM
--- NOTE | 2024-01-08 16:46 | OP.CCLET_ITS ---
01/08/2024 Court Billingsley Md Re : ERCP procedure for Giuliana Mcgill Dear Jose Cruz This procedure was performed on Monday, January 08, 2024. My impressions and recommendations are as follows: Impressions : - Biliary papillary stenosis, benign. - A large amount of food (residue) in the stomach. - Choledocholithiasis was found. Complete removal was accomplished by biliary sphincterotomy and balloon extraction. - A biliary sphincterotomy was performed. - The biliary tree was swept and pus and debris were found. - One temporary stent was placed into the common bile duct. Recommendations : Gastric emptying study. All medications that increase motility will have to be held for 24 hours prior to doing gastric emptying study. Azithromycin 1 g x 1 and oral Reglan 10 mg IV IV every 6 hours. When she goes home he could be transition to oral. Check hemoglobin A1c. My findings are described in the full procedure note, which is enclosed. If I can be of further assistance, please feel free to contact me at . Sincerely, Boom Monroe, 01/08/2024 4:45:36 PM This report has been signed electronically.
[2024-01-08] MEDS: Lactated Ringers 1,000 ML 75 ML IV (18:05)
[2024-01-08] MEDS: Metoclopramide 10 MG/2 ML Vial IV (18:05)
[2024-01-08] MEDS: 0.9% Saline Lock 10 ML Syringe IV (18:05)
[2024-01-08] MEDS: Azithromycin 500 MG in Dextrose 5%-Water (250mL Bag) 250 ML 250 MG IV (18:05)
[2024-01-08] MEDS: 0.9% Normal Saline (1000mL) 1,000 ML 75 ML IV (20:44)
[2024-01-08] MEDS: Piperacil/Tazobactam 3.375 GM in 0.9% Normal Saline (50mL MB+) 50 ML IV (20:56)
[2024-01-09] MEDS: Metoclopramide 10 MG/2 ML Vial IV ×5 (00:52→22:26)
[2024-01-09] MEDS: Piperacil/Tazobactam 3.375 GM in 0.9% Normal Saline (50mL MB+) 50 ML IV ×3 (05:19→22:26)
[2024-01-09 05:45] VITALS: BP 109/64; PULSE 65; RESP 16; TEMP 36.7; O2SAT 94
[2024-01-09 07:10] LABS: Absolute Lymphocyte Count 0.75 X10^3/uL (0.83-4.51); Absolute Neutrophil Count 3.4 X10^3/uL (2.0-7.7); Hematocrit 36.8 % (37-47); Hemoglobin 12.2 g/dL (12.0-15.0); Lymphocyte # 0.75 X10^3/ul (0.83-4.51); Lymphocyte % 17.2 % (19-41); Mean Corp Hgb Conc 33.2 g/dL (32-36); Mean Corpuscular Volume 90.6 fL (81-99); Mean Platelet Vol. 9.6 fl (6.2-12.0); Monocyte# 0.26 X10^3/uL; Monocyte% 5.9 % (0-10); NRBC Flagged by Analyzer 0 % (0-5); Neutrophil # 3.35 X10^3/uL (2.7-7.7); Neutrophil % 76.7 % (47-70); Platelet Count 207 K/mm3 (150-450); RBC Distribution Width CV 13.2 % (11.6-14.6); RBC Distribution Width SD 43.7 fl (35.1-43.9); Red Blood Count 4.06 M/mm3 (4.2-5.4); White Blood Count 4.4 K/mm3 (4.4-11.0)
[2024-01-09 08:13] LABS: ALB/GLOB Ratio 0.9 RATIO (0.9-2.4); AST(SGOT) 555 U/L (15-37); Alanine Aminotransfer ALT/SGPT 1113 U/L (13-56); Albumin, Serum 2.9 g/dL (3.2-5.0); Alkaline Phosphatase 154 U/L (45-117); Anion Gap 5 (5-15); BUN 11 mg/dL (7-18); BUN/Creat Ratio 16.1 RATIO (10-20); Calcium,Total 8.5 mg/dL (8.5-10.1); Chloride 110 mmol/L (98-107); Creatinine, Serum 0.68 mg/dL (0.55-1.02); EST Glomerular Filtration Rate 91 mL/min (>60); Est Glom Filt Rate - Afr Amer 110 mL/min (>60); Estimated Creatinine Clearance 76.01 ml/min; Globulin 3.4 g/dL (2.2-4.2); Glucose 121 mg/dL (74-106); Magnesium 2.4 mg/dL (1.6-2.6); Phosphorus 3.1 mg/dL (2.5-4.9); Protein, Total 6.3 g/dL (6.4-8.2); Sodium Level 139 mmol/L (136-145)
[2024-01-09 08:26] LABS: Hemoglobin A1c 5.3 % (3.8-5.6)
[2024-01-09 08:42] VITALS: BP 116/54; PULSE 60; RESP 14; TEMP 36.6; O2SAT 95
--- NOTE | 2024-01-09 09:36 | MRI_ITS ---
INDICATION: jaundice EXAMINATION: MRI - MR MRCP W/O Contrast TECHNIQUE: Multiplanar and multisequence MR images of the abdomen were obtained. COMPARISON: CT abdomen/pelvis dated 11/19/2021 FINDINGS: LOWER CHEST: Lung bases are clear. No cardiomegaly or pericardial effusion. Right mastectomy. LIVER: Liver normal in size, contour, morphology and parenchymal signal intensity. No focal lesions seen. GALLBLADDER AND BILIARY TREE: Cholecystectomy. There is mild intra and extra hepatic biliary ductal dilatation. Common bile duct stent in place. PANCREAS: No focal cystic or solid mass. SPLEEN: Normal size without focal cystic or solid mass. ADRENAL GLANDS: No nodules. KIDNEYS AND URETERS: Normal renal size and position. No hydronephrosis. No renal mass. Simple cyst in the upper pole of the right kidney is benign. No follow-up imaging recommended. PERITONEUM: No ascites or free air. No other fluid collection. LYMPH NODES: No enlarged mesenteric or retroperitoneal lymph nodes. VESSELS: Aorta is non-dilated. OSSEOUS STRUCTURES: No acute or suspicious osseous abnormalities. MRI/MRCP Abdomen without Contrast IMPRESSION: Mild intra and extra hepatic biliary ductal dilatation, with common bile duct stent appropriately positioned. Cholecystectomy. Electronically Signed: Jose A Anthony MD at 0:42 EDT ,
[2024-01-09] MEDS: 0.9% Normal Saline (1000mL) 1,000 ML 75 ML IV (10:00)
[2024-01-09] MEDS: 0.9% Normal Saline (250mL Bag) 250 ML 15 ML IV (10:01)
[2024-01-09 11:43] VITALS: O2SAT 94
[2024-01-09] MEDS: 0.9% Saline Lock 10 ML Syringe IV ×2 (12:23→17:36)
--- NOTE | 2024-01-09 14:58 | EX.PCM.PN.GI ---
Subjective Subjective Patient is doing well. She underwent an ERCP yesterday and had a common duct stone removed and had a temporary 10 Slovak by 5 cm stent. She was discovered to have elevated liver enzymes consistent with possible cholestatic jaundice. She is awaiting MRCP. She does not have any abdominal pain at this time. Objective Data Objective Data Vital Signs: Vital Signs Temp Pulse Resp BP Pulse Ox O2 Del Method 97.9 F 60 14 116/54 L 94 Room Air 01/09/24 08:42 01/09/24 08:42 01/09/24 08:42 01/09/24 08:42 01/09/24 11:43 01/09/24 11:43 Oxygen Delivery Method Room Air Weight: 198 lb 3.2 oz Body Mass Index (BMI) 32.0 Intake & Output: Intake and Output for Last 24 Hours 01/07/24 01/08/24 01/09/24 23:59 23:59 23:59 Intake Total 623.75 / 623.75 1469.0 / 1469.0 Output Total 250 / 250 Balance 373.75 / 373.75 1469.0 / 1469.0 Lab / Micro Data 01/09/24 06:19 01/09/24 06:19 Labs: Laboratory Results - last 24 hr 01/09/24 06:19: WBC 4.4, RBC 4.06 L, Hgb 12.2, Hct 36.8 L, MCV 90.6, MCH 30.0, MCHC 33.2, RDW Std Deviation 43.7, RDW Coeff of Reagan 13.2, Plt Count 207, MPV 9.6, Immature Gran % (Auto) 0.200, Neut % (Auto) 76.7 H, Lymph % (Auto) 17.2 L, Lyman % (Auto) 5.9, Eos % (Auto) 0.0, Baso % (Auto) 0.0, Absolute Neuts (auto) 3.4, Absolute Lymphs (auto) 0.75 L, Nucleated RBC % 0, Sodium 139, Potassium 4.0, Chloride 110 H, Carbon Dioxide 24.0, Anion Gap 5, BUN 11, Creatinine 0.68, Estim Creat Clear Calc 76.01, Est GFR (MDRD) Af Amer 110, Est GFR (MDRD) Non-Af 91, BUN/Creatinine Ratio 16.1, Glucose 121 H, Hemoglobin A1c 5.3, Calcium 8.5, Phosphorus 3.1, Magnesium 2.4, Total Bilirubin 2.10 H, AST 555 H, ALT 1113 H, Alkaline Phosphatase 154 H, Total Protein 6.3 L, Albumin 2.9 L, Globulin 3.4, Albumin/Globulin Ratio 0.9 Radiography Diagnostic Testing: Radiology Impression Endo Retro Cholangiopancreatogram 01/08/24 16:05 IMPRESSION: Fluoroscopic-guided ERCP Electronically Signed: Gilbert Martínez MD at 17:34 EDT , Physical Exam Const alert, oriented x3, no apparent distress, healthy appearing and well nourished General Appearance: cooperative HEENT normocephalic, head/scalp atraumatic, hearing grossly normal bilaterally and moist oral mucous membranes HEENT Narrative: Mallampati 3, no thrush Eyes PERRL, EOMs intact bilaterally and conjunctivae normal Eyes Narrative: No scleral icterus Neck no lymphadenopathy and supple Neck Narrative: Trachea midline, no thyroid enlargement Resp normal respiratory effort, no retractions, no use of accessory muscles and clear to auscultation bilaterally Auscultation: Negative for rales, rhonchi or wheezes Cardio regular rate, regular rhythm, S1 normal heart sound, S2 normal heart sound, no murmurs, no rub, no gallops and no clicks GI normal to inspection, nondistended, normoactive bowel sounds and soft to palpation GI Narrative: Tenderness in the right upper quadrant close to midline and epigastrium Extremity no clubbing, cyanosis or edema Extremity Narrative: Pedal pulses are 2+ Skin no rashes or lesions noted, no wounds, skin turgor normal, no jaundice, no petechiae and no mottling Neuro oriented x3, moves all extremities and no focal motor deficits Speech: speech normal Psych affect normal Psych Narrative: Eye contact is good, patient interacts appropriately, very pleasant Assessment & Plan Assessment/Plan (1) Nausea and vomiting: (2) Abdominal pain: (3) Hyperbilirubinemia: (4) Choledocholithiasis: (5) Liver enzyme elevation: PLAN: Plan 68-year-old who was transferred outside hospital due to abdominal pain and nausea and was discovered to have obstructive jaundice secondary to choledocholithiasis status post ERCP with stone removal and stent placement. Her LFTs are mildly elevated. Possibly secondary to migrated stent or retained contrast. Also different diagnosis is due to to ischemic hepatitis. We will await the results from MRCP. Charges/Coding Visit Charges Inpatient E&M: 97363 Subs Hosp L3
[2024-01-09 15:02] VITALS: BP 131/69; PULSE 73; RESP 18; TEMP 36.7; O2SAT 94
--- NOTE | 2024-01-09 16:33 | NURSING ---
All documentation by nursing home director, Pinky Bourgeois, reviewed by professor of nursing, Anastasiya LUBINN, RN.
--- NOTE | 2024-01-09 16:58 | PCM.PN.HOSP ---
Reason for Visit Reason for Visit: Abdominal pain/nausea/vomiting Subjective Subjective Patient states she is feeling well. No abdominal pain nausea or vomiting. Unfortunately, her transaminases have gone up instead of down and her total bilirubin is up to 2.1. I discussed this with Dr. Monroe and he would like an MRCP to be performed as he is concerned that maybe his stent moved out of place. I discussed this with patient and we informed her that unfortunately we would not be able to discharge her today most likely. Objective Data Objective Data Vital Signs: Vital Signs Temp Pulse Resp BP Pulse Ox O2 Del Method 98.1 F 73 18 131/69 H 94 Room Air 01/09/24 15:02 01/09/24 15:02 01/09/24 15:02 01/09/24 15:02 01/09/24 15:02 01/09/24 15:02 Oxygen Delivery Method Room Air Weight: 89.902 kg Body Mass Index (BMI) 32.0 Intake & Output: Intake and Output for Last 24 Hours 01/07/24 01/08/24 01/09/24 23:59 23:59 23:59 Intake Total 623.75 / 623.75 1469.0 / 1469.0 Output Total 250 / 250 Balance 373.75 / 373.75 1469.0 / 1469.0 Lab / Micro Data 01/09/24 06:19 01/09/24 06:19 Labs: Laboratory Results - last 24 hr 01/09/24 06:19: WBC 4.4, RBC 4.06 L, Hgb 12.2, Hct 36.8 L, MCV 90.6, MCH 30.0, MCHC 33.2, RDW Std Deviation 43.7, RDW Coeff of Reagan 13.2, Plt Count 207, MPV 9.6, Immature Gran % (Auto) 0.200, Neut % (Auto) 76.7 H, Lymph % (Auto) 17.2 L, Cotton % (Auto) 5.9, Eos % (Auto) 0.0, Baso % (Auto) 0.0, Absolute Neuts (auto) 3.4, Absolute Lymphs (auto) 0.75 L, Nucleated RBC % 0, Sodium 139, Potassium 4.0, Chloride 110 H, Carbon Dioxide 24.0, Anion Gap 5, BUN 11, Creatinine 0.68, Estim Creat Clear Calc 76.01, Est GFR (MDRD) Af Amer 110, Est GFR (MDRD) Non-Af 91, BUN/Creatinine Ratio 16.1, Glucose 121 H, Hemoglobin A1c 5.3, Calcium 8.5, Phosphorus 3.1, Magnesium 2.4, Total Bilirubin 2.10 H, AST 555 H, ALT 1113 H, Alkaline Phosphatase 154 H, Total Protein 6.3 L, Albumin 2.9 L, Globulin 3.4, Albumin/Globulin Ratio 0.9 Radiography Diagnostic Testing: Radiology Impression Endo Retro Cholangiopancreatogram 01/08/24 16:05 IMPRESSION: Fluoroscopic-guided ERCP Electronically Signed: Gilbert Martínez MD at 17:34 EDT , Physical Exam Const alert, oriented x3, no apparent distress, healthy appearing and well nourished Constitutional Narrative: Obese, upper middle-aged, white female, sitting up in bed, nursing at bedside, family at bedside, currently appears comfortable, nontoxic General Appearance: cooperative HEENT normocephalic, head/scalp atraumatic, hearing grossly normal bilaterally and moist oral mucous membranes HEENT Narrative: Dentures in place, Mallampati 2, no thrush Resp normal respiratory effort, no retractions, no use of accessory muscles and clear to auscultation bilaterally Auscultation: Negative for rales, rhonchi or wheezes Cardio regular rate, regular rhythm, S1 normal heart sound, S2 normal heart sound, no murmurs, no rub, no gallops and no clicks GI normal to inspection, nondistended, normoactive bowel sounds, soft to palpation and non-tender Extremity no clubbing, cyanosis or edema Extremity Narrative: Pedal pulses are 2+ Neuro oriented x3, moves all extremities and no focal motor deficits Speech: speech normal Psych affect normal Psych Narrative: Eye contact is good, patient interacts appropriately, very pleasant Assessment & Plan Assessment/Plan (1) Liver enzyme elevation: (2) Choledocholithiasis: (3) Nausea and vomiting: (4) Abdominal pain: (5) Hyperbilirubinemia: (6) Gastroparesis: PLAN: Plan Abdominal pain/nausea and vomiting secondary to choledocholithiasis -CT of the abdomen pelvis shows dilated bile duct -History of cholecystectomy -ERCP done yesterday and showed 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 Gastroparesis -Large amount of food found in the stomach -Started on azithromycin 1 g x 1 dose and IV Reglan 10 mg every 6 hours for now that will be transition to oral at discharge -Hemoglobin A1c was obtained and was 5.3. Etiology of gastroparesis is unclear. -Plan is for outpatient gastric emptying study after discharge -GI follow-up after discharge History of nonalcoholic fatty liver disease -Continue ongoing outpatient follow-up as needed Vitamin D deficiency -Restart ergocalciferol at discharge History of breast cancer -Status postlumpectomy -Continue home exemestane Anxiety -Continue home lorazepam DVT prophylaxis -Subcu Lovenox 40 daily CODE STATUS -Full code Charges/Coding Visit Charges Inpatient E&M: 55940 Subs Hosp L2
[2024-01-09 22:00] VITALS: BP 128/65; PULSE 68; RESP 16; TEMP 36.7; O2SAT 94
[2024-01-10 06:00] VITALS: BP 126/68; PULSE 65; RESP 18; TEMP 36.7; O2SAT 95
[2024-01-10] MEDS: Metoclopramide 10 MG/2 ML Vial IV (06:24)
[2024-01-10] MEDS: Piperacil/Tazobactam 3.375 GM in 0.9% Normal Saline (50mL MB+) 50 ML IV (06:24)
[2024-01-10 07:25] LABS: AST(SGOT) 188 U/L (15-37); Alanine Aminotransfer ALT/SGPT 745 U/L (13-56); Albumin, Serum 3.1 g/dL (3.2-5.0); Alkaline Phosphatase 128 U/L (45-117); Anion Gap 3 (5-15); BUN 11 mg/dL (7-18); BUN/Creat Ratio 14.8 RATIO (10-20); Calcium,Total 8.5 mg/dL (8.5-10.1); Chloride 109 mmol/L (98-107); Creatinine, Serum 0.74 mg/dL (0.55-1.02); EST Glomerular Filtration Rate 83 mL/min (>60); Est Glom Filt Rate - Afr Amer 100 mL/min (>60); Estimated Creatinine Clearance 76.01 ml/min; Globulin 3.1 g/dL (2.2-4.2); Glucose 93 mg/dL (74-106); Potassium 3.7 mmol/L (3.5-5.1); Protein, Total 6.2 g/dL (6.4-8.2); Sodium Level 141 mmol/L (136-145)
[2024-01-10 08:59] VITALS: BP 125/67; PULSE 86; RESP 18; TEMP 36.8; O2SAT 95
--- NOTE | 2024-01-10 09:33 | DS.PCM_ITS ---
Providers Date of Admission: 01/08/24 Date of Discharge: 01/10/24 Primary Care Physician: Dr. Coutr Billingsley MD Consultations 01/08/24 10:54 Consult: Gastroenterology Routine Consulting Provider: Ra Mabelhsaan Reason for Consult: stone blocking bile duct, increased liver enzymes EMERGENT Consult: No MD Notified: Yes Date Notified: 01/08/24 Time Notified: 10:54 Method of Notification: Text Reason For Visit: BILE DUCT BLOCKAGE Diagnosis Discharge Diagnosis (1) Liver enzyme elevation: Status: Acute Code(s): R74.8 - Abnormal levels of other serum enzymes (2) Choledocholithiasis: Status: Acute Code(s): K80.50 - Calculus of bile duct without cholangitis or cholecystitis without obstruction (3) Nausea and vomiting: Status: Acute Code(s): R11.2 - Nausea with vomiting, unspecified (4) Abdominal pain: Status: Acute Code(s): R10.9 - Unspecified abdominal pain (5) Hyperbilirubinemia: Status: Acute Code(s): E80.6 - Other disorders of bilirubin metabolism (6) Gastroparesis: Status: Acute Code(s): K31.84 - Gastroparesis Medications at Discharge Home Medications Aim barley life extra PO 10/27/21 Aim herbal fiberblend PO 10/27/21 Charcoal PO 10/27/21 Hep-3 liver purifier PO 10/27/21 Super papaya enzyme plus PO 10/27/21 ergocalciferol (vitamin D2) 1,250 mcg (50,000 unit) capsule 1,250 mcg PO QWEEK supplement 01/08/24 exemestane 25 mg tablet 25 mg PO DAILY breast cancer 01/08/24 lorazepam 0.5 mg tablet 0.5 - 1 mg PO TID PRN PRN agitation 01/08/24 amoxicillin 875 mg-potassium clavulanate 125 mg tablet 1 tab PO BID #16 tabs 01/10/24 metoclopramide HCl 5 mg tablet (Reglan) 5 mg PO DAILY #90 tabs 01/10/24 Hospital Course Operations ERCP Procedures - (MRCP) Summary of Care Provided Minutes Spent on Discharge: 37 Hospital Course: Mrs. Mcgill is a 68-year-old white female who presented to an outside hospital emergency department on 01/08/2024 early in the morning due to abdominal pain, nausea, and vomiting. She reported her symptoms started the evening prior to presentation at about 7:30 in the evening at which time she started having epigastric pain and right upper quadrant pain that radiated to her back. It worsened as the evening went on and at about 3 AM she asked her to take her to the emergency department because her pain and nausea and vomiting are so bad. She does not have a gallbladder and had never had anything like this previously. She had 1 episode of elevated liver enzymes in the past in 2021 and was diagnosed with nonalcoholic fatty liver disease and follows with Dr. Monroe. Her last appointment with him was about 1 year ago. She reported feeling well otherwise and she denied any abnormalities in her bowel movements. Vital signs here at the time of arrival are overall unremarkable other than some mildly elevated blood pressure. Her CBC was unremarkable other than she had a left shift with an 81% neutrophilia. Her lipase is normal at 22. Her chemistry panel showed mild hyponatremia with a sodium of 134 but otherwise was unremarkable. Liver functions were abnormal with an AST of 538, ALT T of 543, alk phos of 144 and bilirubin of 1.8. Direct bili was found to be 1.3. Lactate was obtained and found to be 1.6. Given her abnormal liver function a CT of the abdomen pelvis with IV contrast was performed and showed a dilated common bile duct with heterogeneous area noted distally to the duct and stones could not be excluded. Troponin was normal. EKG was unremarkable. Given the fact she follows with Dr. Monroe previously she was transferred here for ERCP. 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 Antibiotics were started due to pus being found in the biliary tree in the form of Zosyn and she was on this 2 days prior to discharge. She will be discharged with Augmentin for another 8 days to complete a 10-day course. She was also felt to have gastroparesis given the large amount of food that was noted in the stomach and she was started on Reglan and given 1 dose of IV azithromycin to act as a prokinetic. Hemoglobin A1c was assessed and was normal. The etiology of her gastroparesis is unclear and an outpatient gastric emptying study will need to be performed after motility agents have been held for [address]ology asked that we send her home with Reglan 5 mg p.o. 3 times daily and that we obtain an outpatient follow-up for her after discharge. On the day after her ERCP her transaminases noted to be markedly elevated compared to the day previous and her bilirubin was up to 2.8 so an MRCP was performed as there was concern that maybe her biliary stent had moved out of position. The MRCP was unremarkable for any abnormalities with regards to the biliary stent and she had only mild intra and extrahepatic duct dilation status post ERCP. Her enzymes improved on 01/10/2024 but had not completely normalized. Her bilirubin had normalized however. Dr. Monroe recommended that we discharge her home and prescriptions for the Reglan and amoxicillin were sent to local pharmacy prior to discharge. We have also asked her to follow-up with her primary care physician within the next week. She was discharged home in stable condition on 01/10/2024. Discharge diagnoses: Abdominal pain Nausea and vomiting Choledocholithiasis Transaminitis Hyperbilirubinemia Gastroparesis Nonalcoholic fatty liver disease Vitamin D deficiency History of breast cancer History of anxiety Obesity Physical Exam Const alert, oriented x3, no apparent distress, no limitations, healthy appearing and well nourished; Negative for average body habitus Constitutional Narrative: Obese, upper middle-aged, white female, sitting up in bed, nursing at bedside, multiple family members at bedside, currently appears comfortable, nontoxic General Appearance: cooperative, comfortable, well kempt and well developed Orientation / Consciousness: awake, oriented to person, oriented to place and oriented to time Exam Limitations: no limitations Nutritional Appearance: obese HEENT normocephalic, head/scalp atraumatic, hearing grossly normal bilaterally and moist oral mucous membranes HEENT Narrative: Mallampati is 2, no thrush Eyes PERRL, EOMs intact bilaterally and conjunctivae normal Eyes Narrative: No scleral icterus Neck no lymphadenopathy and supple Neck Narrative: Trachea midline, no thyroid enlargement Resp normal respiratory effort, no retractions, no use of accessory muscles and clear to auscultation bilaterally Auscultation: Negative for rales, rhonchi or wheezes Cardio regular rate, regular rhythm, S1 normal heart sound, S2 normal heart sound, no murmurs, no rub, no gallops and no clicks GI normal to inspection, nondistended, normoactive bowel sounds, soft to palpation and non-tender Extremity no clubbing, cyanosis or edema Extremity Narrative: Pedal pulses are 2+ Skin no rashes or lesions noted, no wounds, skin turgor normal, no jaundice, no petechiae and no mottling Neuro oriented x3, CN's II-XII intact bilaterally, moves all extremities and no focal motor deficits Speech: speech normal Psych affect normal Psych Narrative: Eye contact is good, patient interacts appropriately, very pleasant Weight / BMI Weight Weight: 89.902 kg Body Mass Index (BMI) 32.0 ABG / Lab / Microbiology Data 01/09/24 06:19 01/10/24 06:08 Laboratory: Laboratory Results - last 24 hr 01/10/24 06:08: Sodium 141, Potassium 3.7, Chloride 109 H, Carbon Dioxide 29.0, Anion Gap 3 L, BUN 11, Creatinine 0.74, Estim Creat Clear Calc 76.01, Est GFR (MDRD) Af Amer 100, Est GFR (MDRD) Non-Af 83, BUN/Creatinine Ratio 14.8, Glucose 93, Calcium 8.5, Total Bilirubin 0.90, AST 188 H, ALT 745 H, Alkaline Phosphatase 128 H, Total Protein 6.2 L, Albumin 3.1 L, Globulin 3.1, Albumin/Globulin Ratio 1.0 Radiography Diagnostic Testing: Radiology Impression MRCP 01/09/24 09:36 IMPRESSION: Mild intra and extra hepatic biliary ductal dilatation, with common bile duct stent appropriately positioned. Cholecystectomy. Electronically Signed: Jose A Anthony MD at 0:42 EDT , D/C Instructions Discharge Diet: Low fat / Low cholesterol Discharge Activity: Return to Normal Activity Meaningful Use Info Meaningful Use Diagnoses (Choose all that apply): None applicable Discharge Plan Admission Admit Date/Time: 01/08/24 11:47 Primary Reason for Your Visit: Abdominal pain/nausea/vomiting Attending Provider: Yuliya Fermin Primary Care Provider: Court Billingsley Consulting Providers: Boom Monroe Discharge Orders/Prescriptions Prescriptions: New metoclopramide HCl [Reglan] 5 mg tablet 5 mg PO DAILY Qty: 90 2RF amoxicillin-pot clavulanate 875-125 mg tablet 1 tab PO BID Qty: 16 0RF Continued Aim barley life extra PO Aim herbal fiberblend PO Super papaya enzyme plus PO Hep-3 liver purifier PO Charcoal PO ergocalciferol (vitamin D2) 1,250 mcg (50,000 unit) capsule 1,250 mcg PO QWEEK exemestane 25 mg tablet 25 mg PO DAILY Rx Instructions: take one tablet by mouth once daily after a meal lorazepam 0.5 mg tablet 0.5 - 1 mg PO TID PRN PRN (Reason: agitation) Referrals / Follow Up: Court Billingsley MD [Primary Care Provider] - Within 1 Week Boom Monroe DO [Med Staff - Active Staff] - 04/09/24 9:00 am Disposition Disposition (needs filled in before D/C Order can be placed): Home, Self Care Charges/Coding Visit Charges Inpatient E&M: 03512 Disch Hosp >30min
--- NOTE | 2024-01-10 09:42 | CASEMGMT ---
XIMENA CM into pt room, pt at bedside. Pt states she is typically I in ADL's. Pt denies any homegoing needs. Pt has transportation home.
--- NOTE | 2024-01-10 10:15 | PHA.DC.MC.R ---
Pharmacy [facility] has performed discharge medication reconciliation and counseling for this patient. 1. AMOXICILLIN/CLAVULANATE 875/125MG 1T PO BID X 8 DAYS 2. METOCLOPRAMIDE 5MG PO DAILY The patient's discharge medication list was reviewed for discrepancies and discrepancies were resolved. The patient was counseled on the following discharge medications and changes in medications for homegoing were reviewed. The Reason for Use, instructions for use, and potential side effects were reviewed for all new medications. The patient's questions regarding all of their medications were answered. The patient was able to verbally demonstrate an understanding of their discharge medications. Medications at Discharge Home Medications Aim barley life extra PO 10/27/21 Aim herbal fiberblend PO 10/27/21 Charcoal PO 10/27/21 Hep-3 liver purifier PO 10/27/21 Super papaya enzyme plus PO 10/27/21 ergocalciferol (vitamin D2) 1,250 mcg (50,000 unit) capsule 1,250 mcg PO QWEEK supplement 01/08/24 exemestane 25 mg tablet 25 mg PO DAILY breast cancer 01/08/24 lorazepam 0.5 mg tablet 0.5 - 1 mg PO TID PRN PRN agitation 01/08/24 amoxicillin 875 mg-potassium clavulanate 125 mg tablet 1 tab PO BID #16 tabs 01/10/24 metoclopramide HCl 5 mg tablet (Reglan) 5 mg PO DAILY #90 tabs 01/10/24
--- NOTE | 2024-01-10 17:15 | PN.GI_ITS ---
Subjective Subjective Patient underwent ERCP yesterday for obstructive jaundice. She did have an increase in her LFTs it was thought to be secondary to migrating stent. Her LFTs are improving and MRCP did not show any signs of choledocholithiasis. I suspect that her LFTs were elevated secondary to contrast versus mild ischemia versus retained stone that was passed. Objective Data Objective Data Vital Signs: Vital Signs Temp Pulse Resp BP Pulse Ox O2 Del Method 98.3 F 86 18 125/67 H 95 Room Air 01/10/24 08:59 01/10/24 08:59 01/10/24 08:59 01/10/24 08:59 01/10/24 08:59 01/10/24 08:59 Oxygen Delivery Method Room Air Weight: 198 lb 3.2 oz Body Mass Index (BMI) 32.0 Intake & Output: Intake and Output for Last 24 Hours 01/08/24 01/09/24 01/10/24 23:59 23:59 23:59 Intake Total 623.75 / 623.75 1629.0 / 1629.0 100 / 100 Output Total 250 / 250 Balance 373.75 / 373.75 1629.0 / 1629.0 100 / 100 Lab / Micro Data 01/09/24 06:19 01/10/24 06:08 Labs: Laboratory Results - last 24 hr 01/10/24 06:08: Sodium 141, Potassium 3.7, Chloride 109 H, Carbon Dioxide 29.0, Anion Gap 3 L, BUN 11, Creatinine 0.74, Estim Creat Clear Calc 76.01, Est GFR (MDRD) Af Amer 100, Est GFR (MDRD) Non-Af 83, BUN/Creatinine Ratio 14.8, Glucose 93, Calcium 8.5, Total Bilirubin 0.90, AST 188 H, ALT 745 H, Alkaline Phosphatase 128 H, Total Protein 6.2 L, Albumin 3.1 L, Globulin 3.1, Albumin/Globulin Ratio 1.0 Radiography Diagnostic Testing: Radiology Impression MRCP 01/09/24 09:36 IMPRESSION: Mild intra and extra hepatic biliary ductal dilatation, with common bile duct stent appropriately positioned. Cholecystectomy. Electronically Signed: Jose A Anthony MD at 0:42 EDT , Physical Exam Const alert, oriented x3, no apparent distress, no limitations, healthy appearing and well nourished; Negative for average body habitus Constitutional Narrative: Obese, upper middle-aged, white female, sitting up in bed, nursing at bedside, multiple family members at bedside, currently appears comfortable, nontoxic General Appearance: cooperative, comfortable, well kempt and well developed Orientation / Consciousness: awake, oriented to person, oriented to place and oriented to time Exam Limitations: no limitations Nutritional Appearance: obese HEENT normocephalic, head/scalp atraumatic, hearing grossly normal bilaterally and moist oral mucous membranes HEENT Narrative: Mallampati is 2, no thrush Eyes PERRL, EOMs intact bilaterally and conjunctivae normal Eyes Narrative: No scleral icterus Neck no lymphadenopathy and supple Neck Narrative: Trachea midline, no thyroid enlargement Resp normal respiratory effort, no retractions, no use of accessory muscles and clear to auscultation bilaterally Auscultation: Negative for rales, rhonchi or wheezes Cardio regular rate, regular rhythm, S1 normal heart sound, S2 normal heart sound, no murmurs, no rub, no gallops and no clicks GI normal to inspection, nondistended, normoactive bowel sounds, soft to palpation and non-tender Extremity no clubbing, cyanosis or edema Extremity Narrative: Pedal pulses are 2+ Skin no rashes or lesions noted, no wounds, skin turgor normal, no jaundice, no petechiae and no mottling Neuro oriented x3, CN's II-XII intact bilaterally, moves all extremities and no focal motor deficits Speech: speech normal Psych affect normal Psych Narrative: Eye contact is good, patient interacts appropriately, very pleasant Assessment & Plan Assessment/Plan (1) Liver enzyme elevation: (2) Choledocholithiasis: (3) Nausea and vomiting: (4) Abdominal pain: (5) Hyperbilirubinemia: (6) Gastroparesis: PLAN: Plan Abdominal pain/nausea and vomiting secondary to choledocholithiasis -CT of the abdomen pelvis shows dilated bile duct -History of cholecystectomy -ERCP done yesterday and showed 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 Etiology of gastroparesis is unclear. -Plan is for outpatient gastric emptying study after discharge History of nonalcoholic fatty liver disease -Continue ongoing outpatient follow-up as needed Vitamin D deficiency -Restart ergocalciferol at discharge History of breast cancer -Status postlumpectomy -Continue home exemestane Anxiety -Continue home lorazepam DVT prophylaxis -Subcu Lovenox 40 daily CODE STATUS -Full code Charges/Coding Visit Charges Inpatient E&M: 91816 [facility] Hosp L3
== END 2024-01-10 10:58 | disposition home or self-care (01) ==
PROVIDERS: Internal Medicine Gastroenterology; Admitting Provider Internal Medicine; PCP Family Medicine; Referring Provider Internal Medicine; Visit Provider Internal Medicine
PROC: (CPT 43260; principal; 2024-01-08 16:15)
DX: K80.50 Calculus of bile duct without cholangitis or cholecystitis without obstruction (principal); E87.1 Hypo-osmolality and hyponatremia; K31.84 Gastroparesis; K76.0 Fatty (change of) liver, not elsewhere classified; E66.9 Obesity, unspecified; K44.9 Diaphragmatic hernia without obstruction or gangrene; R74.01 Elevation of levels of liver transaminase levels; K57.30 Diverticulosis of large intestine without perforation or abscess without bleeding; Z79.811 Long term (current) use of aromatase inhibitors; R03.0 Elevated blood-pressure reading, without diagnosis of hypertension; E55.9 Vitamin D deficiency, unspecified; F41.9 Anxiety disorder, unspecified; Z79.899 Other long term (current) drug therapy; Z68.32 Body mass index [BMI] 32.0-32.9, adult
CPT/HCPCS: 43264; 43274; 00732; 36415; 74181; 74330; 76000; 80053; 83036; 83735; 84100; 85025; 94668; 96361; 96365; 96366; 96367; 96375; 96376; 97802; 99221; J7030; J7050; J7120; A4216; G0378; G0379; J2405

== ENCOUNTER → 2024-04-09 | Outpatient (CLI) | payer OTHER, SELFPAY ==
[2024-04-09 11:22] LABS: Absolute Lymphocyte Count 2.02 X10^3/uL (0.83-4.51); Absolute Neutrophil Count 3.2 X10^3/uL (2.0-7.7); Basophil# 0.05 X10^3/uL; Basophil% 0.8 % (0-1); Eosinophil# 0.26 X10^3/uL; Eosinophils% 4.3 % (0-5); Hematocrit 43.3 % (37-47); Hemoglobin 13.9 g/dL (12.0-15.0); Lymphocyte # 2.02 X10^3/ul (0.83-4.51); Lymphocyte % 33.4 % (19-41); Mean Corp Hgb Conc 32.1 g/dL (32-36); Mean Corpuscular Hgb 28.5 pg (27.0-32.0); Mean Corpuscular Volume 88.9 fL (81-99); Monocyte# 0.55 X10^3/uL; Monocyte% 9.1 % (0-10); NRBC Flagged by Analyzer 0 % (0-5); Neutrophil # 3.15 X10^3/uL (2.7-7.7); Neutrophil % 52.2 % (47-70); Platelet Count 256 K/mm3 (150-450); RBC Distribution Width CV 12.8 % (11.6-14.6); RBC Distribution Width SD 41.8 fl (35.1-43.9); Red Blood Count 4.87 M/mm3 (4.2-5.4)
[2024-04-09 21:46] LABS: AST(SGOT) 42 U/L (15-37); Alanine Aminotransfer ALT/SGPT 21 U/L (13-56); Albumin, Serum 3.8 g/dL (3.2-5.0); Alkaline Phosphatase 80 U/L (45-117); Anion Gap 6 (5-15); BUN 16 mg/dL (7-18); BUN/Creat Ratio 19.1 RATIO (10-20); Chloride 105 mmol/L (98-107); Creatinine, Serum 0.84 mg/dL (0.55-1.02); EST Glomerular Filtration Rate 72 mL/min (>60); Est Glom Filt Rate - Afr Amer 87 mL/min (>60); Globulin 3.7 g/dL (2.2-4.2); Glucose 89 mg/dL (74-106); Potassium 4.8 mmol/L (3.5-5.1); Protein, Total 7.5 g/dL (6.4-8.2); Sodium Level 138 mmol/L (136-145)
== END | disposition home or self-care (01) ==
LOC: LAB 11:02
PROVIDERS: PCP Family Medicine; Referring Provider Internal Medicine Gastroenterology; Visit Provider Internal Medicine Gastroenterology
DX: K80.50 Calculus of bile duct without cholangitis or cholecystitis without obstruction (principal); K31.84 Gastroparesis; R74.8 Abnormal levels of other serum enzymes
CPT/HCPCS: 36415; 80053; 85025

== ENCOUNTER 2024-04-29 13:07 | Day surgery (SDC) | payer SELFPAY, OTHER ==
[2024-04-29] VITALS (10 sets, daily range): BP systolic 85–153; BP diastolic 50–87; PULSE 60–78; RESP 16–18; TEMP 36.4–37.1; O2SAT 90–100; BMI 31.3
--- NOTE | 2024-04-29 13:13 | EKG12_ITS ---
Test Reason : PREOP Blood Pressure : / mmHG Vent. Rate : 072 BPM Atrial Rate : 072 BPM P-R Int : 152 ms QRS Dur : 070 ms QT Int : 410 ms P-R-T Axes : 050 006 008 degrees QTc Int : 448 ms Normal sinus rhythm Normal ECG When compared with ECG of 19-NOV-2021 02:18, No significant change was found Confirmed by MARCO MACDONALD, BELEN ([id number]), rewrite editor RADHA BRAGG ([id number]) on 05/02/2024 9:42:59 AM Referred By: Court Billingsley Confirmed By:NUSRAT LARA MD
[2024-04-29] MEDS: Lactated Ringers 1,000 ML 15 ML IV (13:28)
--- NOTE | 2024-04-29 14:15 | FLU_PTH ---
PATIENT: BRENDON ROCHE LOC: EN U#:[id number] AGE/SX: 68/F ROOM: RE04/29/[address]: Dr. Boom Monroe DO : 1955 BED: DIS: 04/29/2024 SPEC #: [id number] RECD: 04/29/24 15:58 STATUS: ABBI MIKE #: [id number] BRANDEN: 04/29/24 14:[address]: Boom Monroe DEPT: CYTOLOGY RECD BY: Diana Mccormick ENTERED: 04/30/24 08:09 SP TYPE: Fluid OTHR DR: Dr. Court Billingsley MD Tissues: Biliary tract, NOS Procedures: Special Stain Group II Surgery Specimen Level IV Cytospin Fluid HEADER OPERATION: ERCP with stent pull, balloon sweep PRE-OP DIAGNOSIS: Gastroparesis, choledocholithiasis TISSUE SUBMITTED: Biliary stent DIAGNOSIS CYTOLOGY Fluid from biliary stent (cytospin and cellblock): Negative for malignant cells. AM/mr 05/01/2024 CYTOLOGY STUDY Slides are reviewed. CYTOLOGY GROSS Received is 1 black stent producing 0.1 ml of thick yellow material labeled with the patient's name and and designated per the requisition as Biliary stent. Submitted for cytology preparation including cell block. Mr 04/30/2024 TC:5 CPT: 11639,42395
--- NOTE | 2024-04-29 14:22 | PRE.ANES_ITS ---
ASA Classification* ASA Classification ASA Classification: 2 Assessment & Plan Anesthesia* Anesthesia Assessment Anesthesia Assessment: Discussed sedation and/or anesthesia options, risks, benefits, and alternatives with patient/parents/legal guardian/POA. Questions invited. The patient/parents/legal guardian/POA seems to understand and agrees to proceed with anesthesia plan. Reviewed the physical assessment, medical history, allergy history and patient home medications list prior to surgery/procedure/anesthetic and documented any changes. Performed airway and anesthesia risk assessments. Anesthesia Type Anesthesia Type: MAC History Source History Obtained from:: Patient and Chart Anesthesia Focused Assessment* Temperature: 97.5 F Pulse Rate: 78 Blood Pressure: 153/87 Respiratory Rate: 18 Pulse Ox: 100 Oxygen Delivery Method: Room Air Airway Assessment Mouth opens: >3 cm Mallampati Score: II Teeth Condition: Caps/Crowns (#11Tooth is a implant.) Neck Range of motion (ROM): Full ROM Focused Labs Anesthesia Preop lab: CBC WBC 6.0 K/mm3 (4.4-11.0) 04/09/24 11:06 RBC 4.87 M/mm3 (4.2-5.4) 04/09/24 11:06 Hgb 13.9 g/dL (12.0-15.0) 04/09/24 11:06 Hct 43.3 % (37-47) 04/09/24 11:06 Plt Count 256 K/mm3 (150-450) 04/09/24 11:06 CHEMISTRY Potassium 4.8 mmol/L (3.5-5.1) 04/09/24 11:06 Sodium 138 mmol/L (136-145) 04/09/24 11:06 Magnesium 2.4 mg/dL (1.6-2.6) 01/09/24 06:19 Phosphorus 3.1 mg/dL (2.5-4.9) 01/09/24 06:19 BUN 16 mg/dL (7-18) 04/09/24 11:06 Creatinine 0.84 mg/dL (0.55-1.02) 04/09/24 11:06 Glucose 89 mg/dL (74-106) 04/09/24 11:06 COAG PT 12.7 SECONDS (11.7-14.9) 12/11/22 10:27 Pre-Assessment Diagnosis/Proposed Procedure Planned Operative Procedure(s): ERCP STENT REMOVAL Anesthesia History Anesthesia History - vp scientific affairs: Anesthesia History - vp scientific affairs Hx Hospitalization Yes: 12/202304/25/24 09:21 Any Problems With Anesthesia No 04/25/24 09:21 Cholinesterase deficiency No 04/25/24 09:21 You/Your Family Experience No 04/25/24 09:21 fever (hyperthermia) with Relationship Recent Exposure to Contagious No 04/29/24 13:28 Disease Does patient have nerve No 04/25/24 09:21 stimulator Patient instructed to have device shut off --Does patient have Pacemaker No 04/29/24 13:28 or ICD? When Was Last Pacemaker Check QUESTION #4 FULL TEXT: You/Your Family Experience fever (hyperthermia) with Anesthesia Last Oral Intake Last Oral intake: Last Oral Intake NPO since 00:00 04/29/24 13:28 Meds taken in AM with sips of Yes 04/29/24 13:28 water? Meds patient instructed to take am of surgery PONV PONV - vp scientific affairs: PONV - vp scientific affairs Female Yes 04/25/24 09:21 HX of Motion Sickness No 04/25/24 09:21 HX of N/V After Surgery No 04/25/24 09:21 Non-Smoker Yes 04/25/24 09:21 Duration of Surgery greater Yes 04/25/24 09:21 than 60 minutes Number of Risk Factors 3 04/25/24 09:21 PONV Score Moderate Risk 04/25/24 09:21 Height & Weight Height & Weight: Anesthesia: Height & Weight Height 5 ft 6 in 04/29/24 13:28 Weight: 87.997 kg 04/29/24 13:28 Body Mass Index (BMI) 31.3 04/29/24 13:28 Respiratory Assessment Respiratory Assessment - vp scientific affairs: Respiratory Tract Infection Hx - vp scientific affairs Hx Respiratory Tract Infection No 04/25/24 09:21 STOP Sleep Apnea STOP Sleep Apnea - vp scientific affairs: STOP Sleep Apnea - vp scientific affairs Hx Hypertension No 04/25/24 09:21 Hx Sleep Apnea No 04/25/24 09:21 CPAP BIPAP Do you snore loudly (louder Yes 04/25/24 09:21 than talking or can be heard Do you often feel tired/ Yes 04/25/24 09:21 fatigued/ sleepy during daytime? Has anyone observed you stop No 04/25/24 09:21 breathing during sleep? STOP Results Positive 04/25/24 09:21 QUESTION #5 FULL TEXT : Do you snore loudly (louder than talking or can be heard through closed doors)? Tobacco Use History Tobacco Use History - vp scientific affairs: Tobacco Use History - vp scientific affairs Tobacco Use Smoking Status Never smoker 04/25/24 09:21 Hx Tobacco Use No 04/25/24 09:21 Years Smoking Packs Smoked per Day Smoking Cessation Date was within the last 15 years Hx Smoking Cessation Date Hx Smoking Cessation Counseling Hematologic Medial History Hematologic Hx - vp scientific affairs: Hematologic Medical Hx - rn referral Hx of Blood Transfusion Yes 04/25/24 09:21 Hx of Transfusion in last 3 No 04/25/24 09:21 Months Date of Last Transfusion (if within last 3 months) Ever experience any problems No 04/25/24 09:21 with transfusion(s)? Specify any problems Hx of Preganancy in last 3 No 04/25/24 09:21 Months Nurse Filling Out Transfusion DSCHRIBER 04/25/24 09:21 & Questions: Date: 04/25/24 04/25/24 09:21 Time: 09:22 04/25/24 09:21 Patient unable to answer at this time (ie. confused, unrespo /Reproduction History /Reproductive History - vp scientific affairs: /Reproductive Hx- vp scientific affairs Hx Now No 04/25/24 09:21 Gestational Age (in weeks): EDC: Hx Hx Para Hx Section SAB No 04/25/24 09:21 Active Medications Active Medications: Current Medications Generic Name Dose Route Start Last Admin Trade Name Freq PRN Reason Stop Dose Admin Lactated Ringer's 1,000 mls @ 15 mls/hr 04/29/24 13:30 04/29/24 13:28 IV 15 mls/hr .Q48H ALEKSEY Administration PFSH Medical History Wears glasses Cancer Depression Arthritis Restless legs Syncope Heartburn Non-smoker Leg cramps History of stress test History of irregular heartbeat Choledocholithiasis Anxiety Hiatal hernia Breast cancer NAFLD (nonalcoholic fatty liver disease) Breast cyst Home Medications ?Medication ?Instructions ?Recorded ?Last Taken ?Type Aim barley life extra 1 sc PO DAILY 10/27/21 Unknown History Charcoal 1 cap PO PRN PRN constipation 10/27/21 Unknown History Super papaya enzyme plus 1 cap PO PRN PRN digestion 10/27/21 Unknown History ergocalciferol (vitamin D2) 1,250 1,250 mcg PO QWEEK supplement 01/08/24 Unknown History mcg (50,000 unit) capsule exemestane 25 mg tablet 25 mg PO DAILY breast cancer 01/08/24 04/29/24 07:00 History lorazepam 0.5 mg tablet 0.5 - 1 mg PO TID PRN PRN agitation 01/08/24 Unknown History metoclopramide HCl 5 mg tablet 5 mg PO DAILY #90 tabs 04/09/24 Unknown Rx (Reglan) Allergy/AdvReac Type Severity Reaction Status Date / Time adhesive tape AdvReac Intermediate Rash Verified 04/29/24 13:27 acetaminophen (From Vicodin) AdvReac skip heart Verified 04/29/24 13:27 beats hydrocodone (From Vicodin) AdvReac skip heart Verified 04/29/24 13:27 beats Family History Father Cancer Brother Heart disease Surgical History Hx of right mastectomy History of ERCP S/P hysterectomy S/P tubal ligation H/O bladder repair surgery Knee joint replacement status H/O: hysterectomy Hx of cholecystectomy Social History adopted: No household members: spouse housing: house number of children: 4 (5 step childern) history of recent travel: No Smoking Status: Never smoker alcohol intake: never substance use type: does not use what type of physical activity do you participate in: none Review of Systems (Anesthesia) ROS Narrative System reviewed and no additional complaints, except as documented.
--- NOTE | 2024-04-29 15:20 | RAD_ITS ---
ERCP INDICATION: Abdominal pain TECHNIQUE: Fluoroscopic guided ERCP was performed in usual fashion by attending service technician copier. 239.1 seconds of fluoroscopic time were utilized during the procedure. FINDINGS: 8 fluoroscopic guided images were obtained during the exam and the anterior projection to document findings during the procedure. For more complete information recommend correlation with gastroenterology procedural notes RAD/ERCP Biliary/Pancreas IMPRESSION: Fluoroscopic-guided ERCP Electronically Signed: Gilbert Martínez MD at 16:10 EDT ,
--- NOTE | 2024-04-29 16:00 | OP.CCLET_ITS ---
04/29/2024 Court Billingsley Md Re : ERCP procedure for Giuliana Mcgill Dear Jose Cruz This procedure was performed on Monday, April 29, 2024. My impressions and recommendations are as follows: Impressions : - The entire main bile duct, left main hepatic duct, right and left intrahepatic branches (but not the right or left hepatic ducts) and left intrahepatic branches were markedly dilated, with a stone causing an obstruction. - The patient has had a cholecystectomy. - Choledocholithiasis was found. Complete removal was accomplished by biliary sphincterotomy and balloon extraction. - A biliary sphincterotomy was performed. - The biliary tree was swept. - One stent was removed from the biliary tree. - The right main hepatic duct was successfully dilated. - One stent was removed from the biliary tree. Recommendations : My findings are described in the full procedure note, which is enclosed. If I can be of further assistance, please feel free to contact me at . Sincerely, Boom Monroe DO 04/29/2024 3:59:43 PM This report has been signed electronically.
--- NOTE | 2024-04-29 16:00 | OP.ERCP_ITS ---
Patient Name: Giuliana Mcgill Procedure Date: 04/29/2024 3:01 PM Date of : 1955 Age: 68 Procedure: ERCP Indications: Bile duct stone(s), Biliary stent removal Providers: Boom Monroe DO Medicines: Monitored Anesthesia Care Patient Profile: This is a 68 year old female. Refer to note in patient chart for documentation of history and physical. Patient has symptoms of acute right upper quadrant abdominal pain and acute jaundice. Complications: No immediate complications. Procedure: Pre-Anesthesia Assessment: - Prior to the procedure, a History and Physical was performed, and patient medications and allergies were reviewed. The patient is competent. The risks and benefits of the procedure and the sedation options and risks were discussed with the patient. All questions were answered and informed consent was obtained. Patient identification and proposed procedure were verified by the physician in the pre-procedure area. Mental Status Examination: alert and oriented. Airway Examination: normal oropharyngeal airway and neck mobility. Respiratory Examination: clear to auscultation. CV Examination: normal. Prophylactic Antibiotics: The patient does not require prophylactic antibiotics. Prior Anticoagulants: The patient has taken no anticoagulant or antiplatelet agents except for NSAID medication. ASA Grade Assessment: II - A patient with mild systemic disease. After reviewing the risks and benefits, the patient was deemed in satisfactory condition to undergo the procedure. The anesthesia plan was to use monitored anesthesia care (MAC). Immediately prior to administration of medications, the patient was re-assessed for adequacy to receive sedatives. The heart rate, respiratory rate, oxygen saturations, blood pressure, adequacy of pulmonary ventilation, and response to care were monitored throughout the procedure. The physical status of the patient was re-assessed after the procedure. After obtaining informed consent, the scope was passed under direct vision. Throughout the procedure, the patient's blood pressure, pulse, and oxygen saturations were monitored continuously. The Duodenoscope was introduced through the mouth, and advanced to the duodenum and used to inject contrast into the bile duct and ventral pancreatic duct. The ERCP was accomplished without difficulty. The patient tolerated the procedure well. Scope In: 3:18:08 PM Scope Out: 3:46:41 PM Total Procedure Duration Time 0 hours 28 minutes 33 seconds Findings: The cell preparer film was normal. The esophagus was successfully intubated under direct vision. The scope was advanced to a normal major papilla in the descending duodenum without detailed examination of the pharynx, larynx and associated structures, and upper GI tract. The upper GI tract was grossly normal. The bile duct was deeply cannulated with the short-nosed traction sphincterotome. Contrast was injected. I personally interpreted the bile duct and pancreatic duct images. There was brisk flow of contrast through the ducts. Image quality was adequate. Contrast extended to the entire biliary tree. Opacification of the entire biliary tree except for the cystic duct and gallbladder was successful. The maximum diameter of the ducts was 14 mm. The main bile duct contained multiple stones, the largest of which was 10 mm in diameter. The main bile duct, left main hepatic duct, left intrahepatic branches and right and left intrahepatic branches (but not the right or left hepatic ducts) were markedly dilated, with a stone causing an obstruction. The largest diameter was 13 mm. A cholecystectomy had been performed. A straight Roadrunner wire was passed into the biliary tree. A 5 mm biliary sphincterotomy was made with a traction (standard) sphincterotome using ERBE electrocautery. The sphincterotomy oozed blood. The biliary tree was swept with a 12 mm balloon starting at the left intrahepatic duct(s) and right intrahepatic duct(s). Sludge was swept from the duct. All stones were removed. One stent was removed from the biliary tree using a 12 mm balloon and sent for cytology. The stent was found to be partially occluded via the water column test. The ventral pancreatic duct was deeply cannulated with the short-nosed traction sphincterotome. Contrast was injected. Opacification of the entire pancreatic ductal system was successful. The maximum diameter of the ducts was 3 mm. The entire opacified area was normal. A 0.035 inch x 260 cm angled Hydra Jagwire was passed into the ventral pancreatic duct. Dilation of the right main hepatic duct with an 11-12-13 mm balloon (to a maximum balloon size of 12 mm) dilator was successful. One stent was removed from the biliary tree using a snare and sent for cytology. The stent was found to be partially occluded via the water column test. Impression: - The entire main bile duct, left main hepatic duct, right and left intrahepatic branches (but not the right or left hepatic ducts) and left intrahepatic branches were markedly dilated, with a stone causing an obstruction. - The patient has had a cholecystectomy. - Choledocholithiasis was found. Complete removal was accomplished by biliary sphincterotomy and balloon extraction. - A biliary sphincterotomy was performed. - The biliary tree was swept. - One stent was removed from the biliary tree. - The right main hepatic duct was successfully dilated. - One stent was removed from the biliary tree. Procedure Code(s): --- Professional --- 45280, 59, Endoscopic retrograde cholangiopancreatography (ERCP); with trans-endoscopic balloon dilation of biliary/pancreatic duct(s) or of ampulla (sphincteroplasty), including sphincterotomy, when performed, each duct 90884, 51, Endoscopic retrograde cholangiopancreatography (ERCP); with removal of foreign body(s) or stent(s) from biliary/pancreatic duct(s) 09110, Endoscopic retrograde cholangiopancreatography (ERCP); with removal of calculi/debris from biliary/pancreatic duct(s) 86258, 59, Endoscopic retrograde cholangiopancreatography (ERCP); with sphincterotomy/papillotomy 51324, 26, Combined endoscopic catheterization of the biliary and pancreatic ductal systems, radiological supervision and interpretation CPT copyright 2021 [employer]. All rights reserved. The codes documented in this report are preliminary and upon insurance sales assistant review may be revised to meet current compliance requirements. Boom Monroe DO 04/29/2024 3:59:43 PM This report has been signed electronically. Number of Addenda: 0 Note Initiated On: 04/29/2024 3:01 PM
--- NOTE | 2024-04-29 16:26 | PCM.POST.ANE ---
Anesthesia: Postop Eval I Current Vital Signs Temperature: 98.7 F Pulse Rate: 60 Blood Pressure: 85/56 Respiratory Rate: 16 Pulse Ox: 98 Oxygen Delivery Method: Room Air Assessment Airway patent: Yes Spontaneous unlabored respirations: Yes Mental status: Awake nausea: No Vomiting: No Anesthesia Complication: No Fluid Hydration Crystalloid volume administer (ml): 600 Total IV fluid infused: 600 Progress Note Anesthesia document: Postop Eval 1 completed: Yes
--- NOTE | 2024-04-29 17:37 | PCM.HP.BLA ---
History and Physical Date of Admission: 04/29/24 Chief Complaint: NAFLD Details: BRENDON MCGILL, is a 68 F who presents to the office today for follow up. ERCP 01.08.24 Biliary papillary stenosis, benign. A large amount of food (residue) in the stomach. Choledocholithiasis was found. Complete removal was accomplished by biliary sphincterotomy and balloon extraction. A biliary sphincterotomy was performed. The biliary tree was swept and pus and debris were found. One temporary stent was placed into the common bile duct. MRCP 01.09.24 Mild intra and extra hepatic biliary ductal dilatation, with common bile duct stent appropriately positioned. Cholecystectomy. OV 04.09.24 pt reports a formed bm everyday; denies blood in the stool. Pt reprots HB a few times a week when she lays down at night. ROS Const Constitutional: Positive for weight change (weight gain); No fatigue or fever(s) ENT ENT: No difficulty swallowing Gastro GI: Positive for change in bowel habits, constipation and heartburn; No abdominal pain, belching, bloating, change in stool character, coffee ground emesis, cramping, diarrhea, difficulty swallowing, feeling full early, excessive flatus, incontinent of stools, Vomiting blood/hematemesis, Blood in stool, loose stools, Black,tarry stools, nausea/dyspepsia, pain with swallowing, vomiting or other Musc Musculoskeletal: Positive for muscle cramps, numbness, stiffness, tingling and Arthritis; No joint pain Skin Skin: No yellowing of the eye or itchy eyes Neuro Neurology: Positive for numbness and tingling Psych Psychiatric: Positive for anxiety and No depression Endo Endocrine: Positive for weight change (weight gain); No fatigue Aller/Imm Allergy/Immunologic: No itchy eyes Dalton/Lymp Hematologic/Lymphatic: No easy bleeding or easy bruising Exam Const General: cooperative, healthy appearing and comfortable Orientation: alert, awake and oriented x3 Eyes Sclera: sclerae normal GI Inspection: normal to inspection Skin General: no rashes or lesions noted and no jaundice Assessment and Plan Assessment and Plan (1) Gastroparesis: Status: Acute Plan: Ms. Mcgill underwent ERCP obstructive jaundice cholestatic hepatitis. This was discovered on MRCP. During her ERCP she was noted to have a lot of food in her stomach thought to be secondary to gastroparesis. Will put her on metoclopramide therapy once a day previously was aborted and she is doing very well without any nausea, vomiting or abdominal pain we will continue the metoclopramide for 1 more month. (2) Choledocholithiasis: Status: Acute Plan: She is status post ERCP with stone stent placed. Will schedule her for stone removal. . Recheck LFTs today Medications: Refilled metoclopramide HCl (Reglan) 5 mg PO DAILY 90 tabs 2RF I have examined the patient and the H&P has been reviewed. There are no clinical changes since date of exam.
--- NOTE | 2024-04-29 22:21 | PCM.POSTANE2 ---
Anesthesia Postop Eval I Sum Postop Eval Completion status Anesthesia document: Postop Eval 1 completed: Yes Anesthesia Postop Eval I Summary Anesthesia Postop Eval I Summary: Anesthesia Postop Eval I: Assessment Summary Airway patent Yes 04/29/24 16:27 [email or web address] Spontaneous unlabored Yes 04/29/24 16:27 [email or web address] respirations Mental status Awake 04/29/24 16:27 [email or web address] nausea No 04/29/24 16:27 [email or web address] Vomiting No 04/29/24 16:27 [email or web address] Anesthesia Postop Eval I: Fluid Summary Crystalloid volume administer 600 04/29/24 16:27 [email or web address] (ml) Colloids volume administered ( ml) Blood Product volume administered (ml) Total IV fluid infused 600 04/29/24 16:27 [email or web address] Anesthesia Postop Eval I: Summary Notes Anesthesia Complication No 04/29/24 16:27 [email or web address] Anesthesia Complication Comment: Post-operative progress note Anesthesia: Postop Eval II Evaluation Mental status: Awake and Calm Pain Level: 1 nausea: No Vomiting: No Complications Anesthesia Complication: No
== END 2024-04-29 17:16 | disposition home or self-care (01) ==
LOC: EN 13:13 → AC 13:14
PROVIDERS: PCP Family Medicine; Referring Provider Family Medicine; Visit Provider Internal Medicine Gastroenterology
PROC: (CPT 43260; principal; 2024-04-29 14:00)
DX: K80.51 Calculus of bile duct without cholangitis or cholecystitis with obstruction (principal); K31.84 Gastroparesis; K76.0 Fatty (change of) liver, not elsewhere classified; F41.9 Anxiety disorder, unspecified; Z79.899 Other long term (current) drug therapy
CPT/HCPCS: 43277; 43275; 74330; 76000; 88108; 88305; 88313; 93005; J7120; J2405

== ENCOUNTER → 2024-05-14 | Outpatient (CLI) | payer OTHER, SELFPAY ==
--- NOTE | 2024-05-14 11:38 | NM_ITS ---
NAME: Giuliana Mcgill PROCEDURE: NM Gastric Emptying Study (solid, liquid or both) ACCESSION NUMBER: [id number] CLINICAL HISTORY: Gastroparesis -- Food seen on EGD COMPARISON: None. TECHNIQUE: A nuclear medicine Gastric Emptying Scan was obtained following oral administration of 1.0 mCi of sulfur colloid contained in 4 ounces of egg substitute with one piece of toast with jelly and water. Axial images in the anterior and posterior projections were obtained at 60 minutes, 120 minutes and 240 minutes. The percentage of gastric emptying at each time frame was calculated. FINDINGS: There is radiopharmaceutical uptake seen in the stomach with small bowel activity seen within 60 minutes. Uptake calculated as follows: 60 minutes = 71 % (normal = 30-90 %) NM/Gastric Emptying Study IMPRESSION: Normal gastric emptying study. Electronically Signed: Martín Fields MD at 11:33 EDT ,
== END | disposition home or self-care (01) ==
LOC: NM 11:35
PROVIDERS: PCP Family Medicine; Referring Provider Internal Medicine Gastroenterology; Visit Provider Internal Medicine Gastroenterology
DX: K80.50 Calculus of bile duct without cholangitis or cholecystitis without obstruction (principal)
CPT/HCPCS: 78264; A9541